=== PATIENT | female | born 1955 | race Asian ===

== ENCOUNTER 2023-04-03 13:17 | Outpatient (AMB) | payer SELFPAY ==
[2023-04-03 13:23] VITALS: BMI 39.5
--- NOTE | 2023-04-03 13:23 | MHC.OFFVIS ---
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 Intake Note: Michelle 67 yr old right hand dominant female who speaks P[place]ht[place], presents today with her daughter Ramila, for bilateral thumb CMC joint pain. States left hand is worse. States this started about 3 months ago and has worsen since. States she has weakness with gripping, twisting and heavy lifting. Denies numbness and tingling. Seen by her PCP who explained this could be O.A. She has tried braces OTC with little relief. Allergies No Known Allergies Allergy (Verified 04/03/23 13:23) HPI LEAD SYSTEMS ENGINEER-B/L hand/thumb arthritis CTS? 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 She complains of bilateral radial sided wrist pain and pain at the base of both thumbs left worse than right. She denies any known injury. Pain worse with activities. She denies any prior treatment and has been wearing OTC braces with no relief She denies any numbness, tingling or locking. She does say she wakes up from her hand pain at night She is a Diabetic. [facility] Social History (Updated 04/03/23 @ 13:25 by KERON Ortiz) Current occupational status: unemployed Current occupation: rt hand Review of Systems Const All systems reviewed & are unremarkable except as noted in HPI and below Physical Exam Vital Signs: BMI result Body Mass Index 39.5 Const General: cooperative, healthy appearing and no acute distress Orientation/consciousness: patient oriented x3 HEENT Head: Yes normocephalic and Yes atraumatic Eyes EOM: EOMs intact bilaterally Resp Effort & Inspection: normal respiratory effort and able to speak in complete sentences Cardio Jugular venous distension: no JVD Skin General skin exam: turgor normal Rashes: no rashes Neuro General: patient oriented x3 Extrem Other: Evaluation of Bilateral Upper Extremity: The patient is alert, oriented, and in no acute distress Neuro: Median, Ulnar, Radial nerves motor and sensory intact and sensation is normal to the tips of all digits Vascular: Cap refill brisk ROM: She can make a fist and extend all her digits No locking or catching Tender over the basal joint bilaterally Positive Shoulder sign bilaterally Most tender over the 1st dorsal compartment as it passes over the radial styloid bilaterally, left worse than right Positive Mine test bilaterally Skin: No lacerations or abrasions. General: No Ecchymosis. No Erythema or evidence of infection. Psych Appearance: grossly normal Affect: normal affect Attitude: cooperative Office Procedures Fracture Care Details: No fracture, injection [id number] Fracture Billing Code: Fracture Billing Code Results Reviewed Results Reviewed: 04/03/23 13:52 Lidocaine HCl 1 % [Xylocaine 1 %] 2 ml .ROUTE .STK-MED ONE dexAMETHasone sod phosphate [Decadron] 4 mg .ROUTE .STK-MED ONE Assessment & Plan Assessment & Plan (1) De Quervain's tenosynovitis, left: Code(s): M65.4 - Radial styloid tenosynovitis [de Quervain] (2) De Quervain's tenosynovitis, right: Code(s): M65.4 - Radial styloid tenosynovitis [de Quervain] (3) Arthritis of carpometacarpal (CMC) joint of left thumb: Code(s): M18.12 - Unilateral primary osteoarthritis of first carpometacarpal joint, left hand (4) Arthritis of carpometacarpal (CMC) joint of right thumb: Code(s): M18.11 - Unilateral primary osteoarthritis of first carpometacarpal joint, right hand Plan Assessment & Plan: 1. Left De Quervains Tenosynovitis Positive Mine test 2. Left basal joint osteoarthritis, based on PE Positive shoulder sign 3. Right De Quervains Tenosynovitis Positive Mine test 4. Right basal joint osteoarthritis, based on PE Positive shoulder sign I educated her about this condition I discussed operative and non-operative treatment options The patient would like to proceed with an injection today I discussed activity modification, she is to limit or avoid any heavy or repetitive pinching, gripping, lifting, or scissoring activities She was fitted for bilateral comfort cool brace to wear with daily activity Injection #1: The risks and benefits of a steroid injection including but not limited to risk of damage to blood vessels, nerves, tendons, infection, skin bleaching, failure to improve symptoms, increased pain, and possible need for further injections or other intervention were discussed with the patient and the patient wishes to proceed with the steroid injection. Once consent was obtained, I sterilely prepped the area over the 1st dorsal compartment of the left thumb. I then injected the 1st dorsal compartment with a combination of 1 mL of dexamethasone (4mg/ml), and 1% lidocaine. The patient tolerated the procedure well with no complications and good resolution of their symptoms prior to leaving clinic. She can follow up in 4-6 weeks if she continues to have pain. At that appointment I recommend X-rays,attn bilateral thumbs At that time we can see whether she might want an injection for the basal joint of the left thumb, or perhaps the 1st dorsal compartment on the right. Scribed for Alexandria Anders MD by Benjamín Quick, medical radiation dosimetrist, on 04/03/23 at 1:50 PM, EST. Coding Level of Care Code New Pt Level 3 (09836) Diagnoses De Quervain's tenosynovitis, left M65.4 De Quervain's tenosynovitis, right M65.4 Arthritis of carpometacarpal (CMC) joint of left thumb M18.12 Arthritis of carpometacarpal (CMC) joint of right thumb M18.11 CPT Codes Fracture Care - Fracture Billing Code: Fracture Billing Code ([id number])
== END 2023-04-03 14:10 | disposition home or self-care (01) ==
PROVIDERS: Visit Provider Orthopaedic Surgery
DX: M65.4 Radial styloid tenosynovitis [de Quervain] (principal); M18.0 Bilateral primary osteoarthritis of first carpometacarpal joints
CPT/HCPCS: 20550; 99204

== ENCOUNTER → 2023-04-03 13:17 | Outpatient (BNVA) | payer SELFPAY | PROVIDERS: Visit Provider Orthopaedic Surgery | DX: M65.4 Radial styloid tenosynovitis [de Quervain] (principal); M18.0 Bilateral primary osteoarthritis of first carpometacarpal joints | CPT/HCPCS: 20550; 99202; J1100 ==

== ENCOUNTER 2023-06-26 09:31 | Outpatient (AMB) | payer OTHER, SELFPAY ==
[2023-06-26 09:38] VITALS: BMI 39.5
--- NOTE | 2023-06-26 09:38 | MHC.OFFVIS ---
Intake Vital Signs 06/26/23 09:38 Height 4 ft 8 in Weight 176 lb BMI 39.5 Intake Visit Reasons: New Prob- B/L knee pain Intake Note: Michelle is a 67 year old female who presents today for a evaluation of her bilateral knee pains, right greater than left. She describes her pains as sharp and severe in nature. Her pains have gotten worse over the last few years in spite of continued non operative treatments. She has had both cortisone injections and Visco supplementation injections which gave her minimal relief. She has also done physical therapy which aggravated her pain. She has tried Tylenol and anti-inflammatory medicines which gave her minimal relief. At this point the patient has difficulty walking even short distances because of her right knee pain. Her right knee pain is interfering with her activities of daily living and her ability to sleep well through the night. Allergies No Known Allergies Allergy (Verified 06/26/23 09:38) Medication List - Last Reconciled 06/26/23 by Sher Salter MD dulaglutide (Trulicity) 1.5 mg subcut QWEEK dulaglutide (Trulicity) 3 mg subcut QWEEK glipizide 5 mg PO BID lisinopril 10 mg PO DAILY magnesium oxide 250 mg PO DAILY metformin 1,000 mg PO BID omeprazole 20 mg PO DAILY simvastatin 20 mg PO DAILY triamterene-hydrochlorothiazid 37.5-25 mg 1 tab PO DAILY PFSH Current occupational status: unemployed Current occupation: rt hand Physical Exam Vital Signs: BMI result Body Mass Index 39.5 Const Other: Well-nourished well-developed very friendly female awake alert and oriented x3 in no acute distress Extrem Other: Bilateral lower extremity examination shows good capillary refill, no skin lesions noted, normal sensation light touch Bilateral knee examination shows minimal effusions, palpable crepitus with range of motion, pain with range of motion, range of motion from -3 degrees to 115 degrees, no instability Office Procedures Joint Injection/Drain Joint Injection/Drain Primary Site: left knee Prep: site was prepped using aseptic technique Injected: 40 mg of, Kenalog and 1% plain lidocaine Procedure: The patient tolerated the procedure well Coding 46743 - Large joint Procedure code (CPT) selection complete Results Reviewed Results Reviewed: X-rays of the patient's bilateral knee show severe joint space narrowing with grade 4 [id number] arthritis in the medial compartments, subchondral sclerosis, osteophyte formation, no acute bony abnormalities Assessment & Plan Assessment & Plan (1) Arthritis of left knee: Code(s): M17.12 - Unilateral primary osteoarthritis, left knee Plan: Ms. Paiz presents with bilateral knee pains, right greater than left, due to end-stage degenerative joint disease. I had a lengthy discussion with the patient regarding the treatment options. At this point the patient has failed continued non operative treatments. The risks and benefits of right total knee replacement surgery were discussed at length with the patient. The patient wishes to proceed. She will contact my office to pick a surgery date. I will see her back 1 week prior to her surgery to answer any final questions that she might have. We will hold off on a cortisone injection into her right knee because of the upcoming surgery. The risks and benefits of a left knee cortisone injection were discussed at length with the patient. The patient wished to proceed. She tolerated the injection well. I also gave her a prescription for Tylenol with codeine to help with her pain in the meantime. The patient will follow-up as instructed. Feel free to call me at any time should questions regarding her orthopedic management arise. Thank you very much for asking me to see this very friendly patient. I spent 22 minutes in reviewing the patient's records and imaging studies, seeing the patient and documenting in the medical record. (2) Arthritis of right knee: Code(s): M17.11 - Unilateral primary osteoarthritis, right knee Orders: Orders XR knee LT 3V Today M17.12 - Unilateral primary osteoarthritis, left knee XR knee RT 3V Today M25.561 - Pain in right knee AMB Joint Injection/Aspiration Today M17.12 - Unilateral primary osteoarthritis, left knee Coding Level of Care Code New Pt Level 2 (77618) Diagnoses Arthritis of left knee M17.12 Arthritis of right knee M17.11 CPT Codes Coding - Large joint: 06043 - Large joint ([id number])
== END 2023-06-26 10:27 | disposition home or self-care (01) ==
PROVIDERS: Visit Provider Orthopaedic Surgery
DX: M17.0 Bilateral primary osteoarthritis of knee (principal)
CPT/HCPCS: 20610; 99214

== ENCOUNTER 2023-06-26 14:45 | Outpatient (REF) | payer OTHER, SELFPAY ==
--- NOTE | ~2023-06-26 | XR_ITS ---
EXAMINATION: XR KNEE, RIGHT XR KNEE, LEFT CLINICAL INFORMATION: Pain COMPARISON: None available. TECHNIQUE: 3 views of each knee FINDINGS: RIGHT: No acute visible fracture or dislocation. Moderate multi joint arthritic changes. Moderate to severe narrowing of the medial femorotibial compartments. Moderate narrowing of the medial and lateral patellofemoral compartment. Periarticular osteophytes along the tibial plateau, distal femoral condyle, and superior margin of the patella. Joint spaces and alignment are otherwise maintained. Trace knee joint effusion. Multiple ossific densities noted in the posterior compartment possibly representing phleboliths versus loose bodies. Soft tissues are unremarkable. LEFT: No acute visible fracture or dislocation. Moderate multi joint arthritic changes. Moderate to severe narrowing of the medial femorotibial compartments. Moderate narrowing of the medial and lateral patellofemoral compartment. Periarticular osteophytes along the tibial plateau, distal femoral condyle, and superior margin of the patella. Joint spaces and alignment are otherwise maintained. Trace knee joint effusion. Multiple ossific densities noted in the posterior and suprapatellar compartments possibly representing phleboliths versus loose bodies. Soft tissues are unremarkable. XR/XR knee RT 3V IMPRESSION: 1. No acute visible fracture or dislocation. 2. Bilateral moderate multi joint arthritic changes. 3. Bilateral trace knee joint effusion. 4. Multiple ossific densities noted in the posterior and suprapatellar compartments possibly representing phleboliths versus loose bodies.
--- NOTE | ~2023-06-26 | XR_ITS ---
EXAMINATION: XR KNEE, RIGHT XR KNEE, LEFT CLINICAL INFORMATION: Pain COMPARISON: None available. TECHNIQUE: 3 views of each knee FINDINGS: RIGHT: No acute visible fracture or dislocation. Moderate multi joint arthritic changes. Moderate to severe narrowing of the medial femorotibial compartments. Moderate narrowing of the medial and lateral patellofemoral compartment. Periarticular osteophytes along the tibial plateau, distal femoral condyle, and superior margin of the patella. Joint spaces and alignment are otherwise maintained. Trace knee joint effusion. Multiple ossific densities noted in the posterior compartment possibly representing phleboliths versus loose bodies. Soft tissues are unremarkable. LEFT: No acute visible fracture or dislocation. Moderate multi joint arthritic changes. Moderate to severe narrowing of the medial femorotibial compartments. Moderate narrowing of the medial and lateral patellofemoral compartment. Periarticular osteophytes along the tibial plateau, distal femoral condyle, and superior margin of the patella. Joint spaces and alignment are otherwise maintained. Trace knee joint effusion. Multiple ossific densities noted in the posterior and suprapatellar compartments possibly representing phleboliths versus loose bodies. Soft tissues are unremarkable. XR/XR knee LT 3V IMPRESSION: 1. No acute visible fracture or dislocation. 2. Bilateral moderate multi joint arthritic changes. 3. Bilateral trace knee joint effusion. 4. Multiple ossific densities noted in the posterior and suprapatellar compartments possibly representing phleboliths versus loose bodies.
== END 2023-06-26 14:46 | disposition home or self-care (01) ==
LOC: HO.HOSX 14:45
PROVIDERS: Visit Provider Orthopaedic Surgery
DX: M17.0 Bilateral primary osteoarthritis of knee (principal)
CPT/HCPCS: 20610; 73562; J3301

== ENCOUNTER 2023-07-10 09:46 | Outpatient (AMB) | payer OTHER, SELFPAY ==
--- NOTE | 2023-07-10 09:49 | A.OFFVIS_ITS ---
Intake Intake Visit Reasons: Request knee injections Intake Note: Michelle is a 67 year old female who presents today for a follow up of her bilateral knee pains. She has had injections given in both of her knees in the past. She has gotten fairly good relief from cortisone injections given into her right knee. Her last left knee injection gave her no relief. She describes her knee pains as sharp and severe in nature. She has taken Tylenol and anti- inflammatory medicines which gave her minimal relief. At this point her left knee pain is interfering with her activities of daily living and her ability to sleep well through the night. Allergies No Known Allergies Allergy (Verified 07/10/23 09:52) Medication List - Last Reconciled 07/10/23 by Sher Salter MD acetaminophen-codeine 300-30 mg 1 tab PO Q8H PRN dulaglutide (Trulicity) 1.5 mg subcut QWEEK dulaglutide (Trulicity) 3 mg subcut QWEEK glipizide 5 mg PO BID lisinopril 10 mg PO DAILY magnesium oxide 250 mg PO DAILY metformin 1,000 mg PO BID omeprazole 20 mg PO DAILY simvastatin 20 mg PO DAILY triamterene-hydrochlorothiazid 37.5-25 mg 1 tab PO DAILY PFSH Social History Current occupational status: unemployed Current occupation: rt hand Physical Exam Const Other: Well-nourished well-developed very friendly female awake alert and oriented x3 in no acute distress Extrem Other: Bilateral lower extremity examination shows good capillary refill, no skin lesions noted, normal sensation light touch Bilateral knee examination shows minimal effusions, palpable crepitus with range of motion, pain with range of motion, range of motion from -3 degrees to 115 degrees, no instability Office Procedures Joint Injection/Drain Joint Injection/Drain Primary Site: right knee Prep: site was prepped using aseptic technique Injected: 40 mg of, DepoMedrol and 1% plain lidocaine Procedure: The patient tolerated the procedure well Coding 45449 - Large joint Procedure code (CPT) selection complete Results Reviewed Results Reviewed: X-rays of the patient's bilateral knee show severe joint space narrowing, subchondral sclerosis, osteophyte formation, no acute bony abnormalities the Assessment & Plan Assessment & Plan (1) Arthritis of right knee: Code(s): M17.11 - Unilateral primary osteoarthritis, right knee Plan Ms. Paiz presents with bilateral knee pains, left greater than right, due to end-stage degenerative joint disease. I had a lengthy discussion with the patient regarding the treatment options. The risks and benefits of a right knee cortisone injection were discussed at length with the patient. The patient wished to proceed. She tolerated the injection well. We also discussed the treatment options for her left knee pain. At this point she has failed continued non operative treatments. The risks and benefits of left total knee replacement surgery were discussed at length with the patient. The patient is interested in proceeding with surgery once her hemoglobin A1c is below 8.0. She will contact my office to pick a surgery date. She will follow-up as instructed. Feel free to call me at any time should questions regarding her orthopedic management arise. I spent 22 minutes in reviewing the patient's records and imaging studies, seeing the patient and documenting in the medical record. Orders: Orders AMB Joint Injection/Aspiration Today M17.11 - Unilateral primary osteoarthritis, right knee Coding Level of Care Code Est Pt Level 2 (29662) Diagnoses Arthritis of right knee M17.11 CPT Codes Coding - 30458 Large joint: 62328 - Large joint ([id number])
== END 2023-07-10 10:13 | disposition home or self-care (01) ==
PROVIDERS: PCP Family Medicine; Visit Provider Orthopaedic Surgery
DX: M17.11 Unilateral primary osteoarthritis, right knee (principal)
CPT/HCPCS: 20610

== ENCOUNTER → 2023-07-10 09:46 | Outpatient (BNVA) | payer OTHER, SELFPAY | PROVIDERS: PCP Family Medicine; Visit Provider Orthopaedic Surgery | DX: M17.11 Unilateral primary osteoarthritis, right knee (principal) | CPT/HCPCS: 20610; J1040 ==

== ENCOUNTER → 2023-10-22 14:18 | Outpatient (BNVA) | payer OTHER, SELFPAY | PROVIDERS: PCP Family Medicine; Visit Provider Orthopaedic Surgery ==

== ENCOUNTER → 2023-10-22 14:18 | Outpatient (BNVA) | payer OTHER, SELFPAY | PROVIDERS: PCP Family Medicine; Visit Provider Orthopaedic Surgery ==

== ENCOUNTER 2024-09-30 12:59 | Outpatient (AMB) | payer MEDICARE, MEDICAID, SELFPAY ==
[2024-09-30 13:27] VITALS: BMI 39.5
--- NOTE | 2024-09-30 13:27 | A.OFFVIS_ITS ---
Vital Signs 09/30/24 13:27 Height 4 ft 8 in Weight 176 lb BMI 39.5 Intake Visit Reasons: OV- bilat hand pain Intake Note: Michelle 69 yr old [place] speaking female presents today with her daughter Ramila for bilateral hands s/p left hand dequervain injection from 04/03/24. State injection did not help at help. Currently she is having pain in both hands and is hoping to have both hands injected or discuss other treatment options. 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 She was last seen on 04/03/23 and received a left 1st dorsal compartment injection, and bilateral comfort cool braces. She says the injection was not helpful. She complains of bilateral radial sided wrist pain and pain at the base of both thumbs, R>L. Pain worse with pinching & gripping activities. She says she cannot pick anything up. her daughter says it even hurts her to wipe her nose. She denies any numbness, tingling or locking. She does say she wakes up from her hand pain at night [facility] Medical History (Updated 09/30/24 @ 13:51 by Benjamín Quick) Diabetes GERD (gastroesophageal reflux disease) Elevated cholesterol HTN (hypertension) Arthritis Social History Current occupational status: unemployed Current occupation: rt hand Physical Exam Vital Signs: BMI result Body Mass Index 39.5 Extrem Other: Evaluation of Right Upper Extremity: The patient is alert, oriented, and in no acute distress Neuro: Median, Ulnar, Radial nerves motor and sensory intact and sensation is normal to the tips of all digits Vascular: Cap refill brisk ROM: She can make a fist and extend all her digits No locking or catching Most tender over the basal joint Pos Shoulder sign Pos CMC grind Not particularly tender over the 1st dorsal compartment Mild tenderness over the a1 maranda Office Procedures AMB Fracture Care Details: No fracture, injection Fracture Billing Code: Fracture Billing Code Assessment & Plan Assessment & Plan (1) Arthritis of carpometacarpal (CMC) joint of right thumb: Code(s): M18.11 - Unilateral primary osteoarthritis of first carpometacarpal joint, right hand Category: Medical (2) De Quervain's tenosynovitis, left: Code(s): M65.4 - Radial styloid tenosynovitis [de Quervain] Category: Medical (3) De Quervain's tenosynovitis, right: Code(s): M65.4 - Radial styloid tenosynovitis [de Quervain] Category: Medical (4) Arthritis of carpometacarpal (CMC) joint of left thumb: Code(s): M18.12 - Unilateral primary osteoarthritis of first carpometacarpal joint, left hand Category: Medical (5) Diabetes: Code(s): E11.9 - Type 2 diabetes mellitus without complications Category: Medical Plan Assessment & Plan: 1. Right basal joint osteoarthritis, based on PE Positive shoulder sign This is her chief complaint today 2. Right De Quervains Tenosynovitis 3. Left basal joint osteoarthritis, based on PE Positive shoulder sign 4. Left De Quervains Tenosynovitis, S/P injection Date of injection: 04/03/23 Patient reports no relief from her injection I educated her about these conditions I discussed operative and non-operative treatment options The patient would like to proceed with an injection today I discussed activity modification, she is to limit or avoid any heavy or repetitive pinching, gripping, lifting, or scissoring activities She will continue to wear her comfort cool braces with daily activities Injection #1: The risks and benefits of a steroid injection including but not limited to risk of damage to blood vessels, nerve, tendon, infection, skin bleaching, persistent or worsening pain, and failure to improve symptoms were discussed with the patient and they wish to proceed with the steroid injection. Once consent was obtained the skin over the dorsum of the Right basal joint was sterilely prepped. The joint was then injected with a combination of 1 mL of (40 mg/ml} Depo-Medrol and 1% plain Lidocaine. The patient appears to have tolerated the procedure well and with no complications. She had good early relief before leaving clinic today. She knows that they may not have another steroid injection into this joint for least 4 months. She will follow up in 4-5 weeks, when Ramadan is over, to discuss a possible right hand injection Bilateral hand X-rays, attn base of thumbs, at next appointment Please note that greater than 30 minutes was spent with this patient going over the history, evaluating the patient and radiographs, formulating possible treatment options, discussing them with the patient, and documenting the visit. Scribed for Alexandria Anders MD by Benjamín Quick, medical management specialist, on 09/30/24 at 1:50 PM, EST. Coding Level of Care Code Est Pt Level 4 (20699) Diagnoses Arthritis of carpometacarpal (CMC) joint of right thumb M18.11 De Quervain's tenosynovitis, left M65.4 De Quervain's tenosynovitis, right M65.4 Arthritis of carpometacarpal (CMC) joint of left thumb M18.12 Diabetes E11.9 CPT Codes Fracture Care - Fracture Billing Code: Fracture Billing Code ([id number])
--- OUTSIDE RECORDS SUMMARY | 2024-09-30 15:55 | XMS_ITS | Clinical Summary ---
Author Organization [facility] Address [address] [place] [address] Care Team Providers Care Coupon Clerk Name Role Phone Daniel Khalil MD Primary Care Prov ider Allergies No known active allergies Medications Medication Sig Dispensed Refills Start Date End Date Status albuterol (PROVENTIL) (2.5 MG/3ML) 0.083% nebulizer solution USE 3 ML VIA NEBULIZER EVERY DAY NEEDED 0 01/12/2021 Active clobetasol (TEMOVATE) 0.05 % ointment APPLY THIN LAYER TOPICALLY TO THE AFFECTED AREA TWICE DAILY 0 03/03/2021 Active diclofenac (VOLTAREN) 50 MG EC tablet TAKE 1 TABLET BY MOUTH TWICE DAILY WITH MEALS FOR 14 DAYS 0 02/17/2021 Active Trulicity 0.75 MG/0.5ML subcutaneous pen-injector ADMINISTER 0.75 MG UNDER THE SKIN EVERY WEEK 0 02/21/2021 Active ferrous sulfate 325 (65 FE) MG tablet Take 325 mg by mouth. 0 Active glipiZIDE (GLUCOTROL) tablet 5 mg 1/2 tablet Orally Twice a day 0 Active MAGnesium-Oxide 400 (241.3 Mg) MG TABS tablet Take 400 mg by mouth daily. 0 12/30/2020 Active metFORMIN (GLUCOPHAGE) tablet 1000 mg Take 1,000 mg by mouth. 0 Active simvastatin (ZOCOR) tablet 20 mg Take 20 mg by mouth daily. 0 02/07/2021 Active topiramate (TOPAMAX) 25 MG capsule Take 25 mg by mouth. 0 Active lisinopril (PRINIVIL,ZESTRIL) tablet 5 mg Take 5 mg by mouth daily. 0 03/08/2021 Active omeprazole (PriLOSEC) 20 MG capsule 0 03/08/2021 Active triamterene-hydrochlo rothiazide (MAXZIDE-25) 37.5-25 MG per tablet Take 1 tablet by mouth daily. 0 03/08/2021 Active cefpodoxime (VANTIN) 200 MG tablet 0 07/22/2021 Active gabapentin (NEURONTIN) 300 MG capsule TAKE 1 CAPSULE BY MOUTH EVERY DAY IN THE EVENING 0 08/14/2021 Active sulfamethoxazole-trim ethoprim (BACTRIM DS) 800-160 MG per tablet Take 1 tablet by mouth every 12 (twelve) hours. for 3 days 0 12/18/2021 Active Trulicity 1.5 MG/0.5ML subcutaneous pen-injector ADMINISTER 1.5 MG UNDER THE SKIN EVERY WEEK 0 01/19/2022 Active Active Problems Problem Noted Date Diagnosed Date Degenerative arthritis of knee, bilateral 2020 Social History Tobacco Use Types Packs/Day Years Used Date Smoking Tobacco: Never Assessed Sex and Gender Information Value Date Recorded Sex Assigned at Not on file Gender Identity Not on file Sexual Orientation Not on file Job Start Date Occupation Industry Not on file Not on file Not on file Last Filed Vital Signs Vital Sign Reading Time Taken Comments Blood Pressure - - Pulse - - Temperature - - Respiratory Rate - - Oxygen Saturation - - Inhaled Oxygen Concentration - - Weight 77.1 kg (170 lb) 03/28/2021 10:00 AM EDT Height 160 cm (5' 3 ) 03/28/2021 10:00 AM EDT Body Mass Index 30.11 03/28/2021 10:00 AM EDT Plan of Treatment Health Maintenance Due Date Last Done Comments Hepatitis C Screening 1955 COVID-19 Vaccine (#1) 03/06/1958 Depression Screening 1969 BMI Counseling 1975 Preventative Health Evaluation 1975 DTap / Tdap / Td (1 - Tdap) 1976 Colon Cancer Screening (Colonoscopy) 2002 Breast Cancer Screening (Mammogram) 2007 Shingrix-Zoster Vaccine (1 of 2) 2007 Fall Risk Assessment 2022 Osteoporosis Screening (DEXA Scan) 2022 Pneumococcal Vaccine (1 of 1 - PCV) 2022 Influenza Vaccine (#1) 2024 RSV Adult > 60+ Yrs or Pregn ant (1 - 1-dose 75+ series) 2032 Hepatitis B Vaccines Aged Out No long er eligible based on patient's age to complete this topic RSV Ped < 20 months Aged Out No longe r eligible based on patient's age to complete this topic Care Teams Coupon Clerk Relationship Specialty Start Date End Date Daniel Khalil MD [address] [place] [phone] PCP - General Family Medicine 01/26/21
--- OUTSIDE RECORDS SUMMARY | 2024-09-30 15:55 | XMS_ITS | Clinical Summary ---
Author Organization [facility] Address [address] [place] [address] Care Team Providers Care Plant Engineering Supervisor Name Role Phone Unavailable Primary Care Provider Unavailabl e Social History Tobacco Use Types Packs/Day Years Used Date Smoking Tobacco: Never Assessed Sex and Gender Information Value Date Recorded Sex Assigned at Not on file Gender Identity Not on file Sexual Orientation Not on file Plan of Treatment Health Maintenance Due Date Last Done Comments Hepatitis C Virus Screening 1957 DTaP/Tdap/Td Vaccines (1 - Tdap) 1976 Mammogram 1997 Colonoscopy 2002 Pneumococcal Vaccines 50+ (1 of 1 - PCV) 2007 Zoster (Shingles) Vaccine (1 of 2) 2007 DXA Bone Density (Females,Ag es 65 and older) 2022 Influenza Vaccine 03/05/2024 COVID-19 Vaccine ( - 2023-2 5 season) 2024 RSV Vaccine 60 years and old er and Patients (1 - 1-dose 75+ series) 2032 Hepatitis B Vaccines Aged Out No long er eligible based on patient's age to complete this topic
--- OUTSIDE RECORDS SUMMARY | 2024-09-30 15:55 | XMS_ITS | Encounter Summary ---
Author Organization [facility] Address [address] [place] [address] Care Team Providers Care Banking Management Consulting Manager Name Role Phone Unavailable Primary Care Provider Unavailabl e Encounter Details Date Type Department Care Team (Late st Contact Info) Description [address] [place] [address] [place] [address] Harpreet Zuniga MD [address] [place], [place] [phone] Encounter for laboratory testing for COVID-19 virus Social History Tobacco Use Types Packs/Day Years Used Date Smoking Tobacco: Never Assessed Sex and Gender Information Value Date Recorded Sex Assigned at Not on file Gender Identity Not on file Sexual Orientation Not on file documented as of this encounter Plan of Treatment Not on file documented as of this encounter Procedures Procedure Name Priority Date/Time Associated Diagnosis Comments COVID-19 (SARS-COV-2) - [facility] Routine 2020 3:17 PM EST Encounter for laboratory testing for COVID-19 virus [ICD-10-CM] documented in this encounter Results * COVID-19 (SARS-COV-2) ([facility]) (2020 3:17 PM EST) COVID-19 RT-PCR NOT-DETEC MARYJANE Not-Detec maryjane 09/07/2020 3:25 PM EST [facility] [place] Comment:Interpretation: The viral RNA was not detected, making the COVID-19 diagnosis less likely. Clinical correlation is highly recommended.Final report signed by Jose Davis, Ph.D., Laboratory DirectorTests performed at [facility] Nasopharyngeal swab / Unknown 2020 3:17 PM EST 2020 3:17 PM EST Narrative SRUTHI HERR - 09/07/2020 3:25 PM EST Performed by [employer] [employer] [address] [place] [address], CLIA# [id number] and [place] License# [id number] Harpreet Zuniga MD MICROBIOLOGY - GENER AL ORDERABLES Performing Organization Address City/State/[place] Co de Phone Number SRUTHI HERR documented in this encounter Visit Diagnoses Diagnosis Encounter for laboratory testing for COVID-19 virus documented in this encounter
== END 2024-09-30 14:18 | disposition home or self-care (01) ==
PROVIDERS: PCP Family Medicine; Visit Provider Orthopaedic Surgery
DX: M18.0 Bilateral primary osteoarthritis of first carpometacarpal joints (principal); M65.4 Radial styloid tenosynovitis [de Quervain]; E11.9 Type 2 diabetes mellitus without complications
CPT/HCPCS: 20600; 99214

== ENCOUNTER → 2024-09-30 12:59 | Outpatient (BNVA) | payer MEDICARE, SELFPAY | PROVIDERS: PCP Family Medicine; Visit Provider Orthopaedic Surgery | DX: M18.11 Unilateral primary osteoarthritis of first carpometacarpal joint, right hand (principal); M18.12 Unilateral primary osteoarthritis of first carpometacarpal joint, left hand; M65.4 Radial styloid tenosynovitis [de Quervain]; E11.9 Type 2 diabetes mellitus without complications | CPT/HCPCS: 20600; 99212; J1010; J2003 ==

== ENCOUNTER 2024-11-11 12:28 | Outpatient (REF) | payer MEDICARE, MEDICAID, SELFPAY ==
--- NOTE | ~2024-11-11 | XR_ITS ---
EXAMINATION: XR HAND, LEFT CLINICAL INFORMATION: M79.642 - Pain in left hand COMPARISON: None available. TECHNIQUE: PA, lateral, and oblique views of the left hand. FINDINGS: Sclerosis and the articular surface of the first carpometacarpal joint. Asymmetric joint space narrowing, radiocarpal joint. Decreased mineralization. No acute cortical disruption or malalignment. No lytic or blastic lesions. XR/XR hand LT min 3V IMPRESSION: Mild osteoarthrosis. Osteopenia versus osteoporosis. No acute fracture or dislocation. Electronically signed by: Kolby Canas MD 11/11/2024 03:00 PM EDT
--- NOTE | ~2024-11-11 | XR_ITS ---
EXAMINATION: XR HAND, RIGHT CLINICAL INFORMATION: M79.641 - Pain in right hand COMPARISON: None available. TECHNIQUE: PA, lateral, and oblique views of the right hand. FINDINGS: No acute cortical disruption or malalignment. Degenerative changes in the first carpometacarpal joint. Mild joint space narrowing in the radiocarpal joint. No lytic or blastic lesions. No metallic or radiopaque foreign body. Decreased mineralization. No subcutaneous emphysema. XR/XR hand RT min 3V IMPRESSION: No acute fracture or dislocation. Mild osteoarthrosis.. Electronically signed by: Kolby Canas MD 11/11/2024 02:59 PM EDT
== END 2024-11-11 12:29 | disposition home or self-care (01) ==
LOC: HO.HOSX 12:28
PROVIDERS: PCP Family Medicine; Visit Provider Orthopaedic Surgery
DX: M18.11 Unilateral primary osteoarthritis of first carpometacarpal joint, right hand (principal); M79.642 Pain in left hand; M79.641 Pain in right hand; M18.12 Unilateral primary osteoarthritis of first carpometacarpal joint, left hand; M65.4 Radial styloid tenosynovitis [de Quervain]
CPT/HCPCS: 20600; 73130; 99212; J1010; J2003

== ENCOUNTER 2024-11-11 12:28 | Outpatient (AMB) | payer MEDICARE, MEDICAID, SELFPAY ==
--- NOTE | 2024-11-11 12:39 | MHC.OFFVIS ---
Intake Visit Reasons: OV- bilat hand pain - last rt basal inj 09/30/24 Intake Note: Michelle 69 yr old Pushto speaking female presents today with her daughter Ramila for bilateral hands s/p left hand dequervain injection from 09/30/24. States injection helped with her symptoms however states she is now having same pain in her left hand and would like to discuss injection. Allergies No Known Allergies Allergy (Verified 11/11/24 12:56) HPI HPI OV- bilat hand pain - last rt basal inj 09/30/24: Details: Michelle is a 69 year old right hand dominant Diabetic Pushtu/Arabic speaker from 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 She has bilateral basal joint arthritis. She was last seen on 09/30/24 for a right 1st basal joint injection, and previously had received a left 1st dorsal compartment injection, and bilateral comfort cool braces, on 04/03/23. She says the right basal joint injection was helpful, and she would now like to try a left basal joint injection She denies any numbness, tingling or locking. She does say she wakes up from her hand pain at night [facility] Medical History (Updated 09/30/24 @ 13:51 by Benjamín Quick) Diabetes GERD (gastroesophageal reflux disease) Elevated cholesterol HTN (hypertension) Arthritis Social History (Reviewed 11/11/24 @ 12:57 by Nita Fitzgerald [facility]) Current occupational status: unemployed Current occupation: rt hand Physical Exam Extrem Other: Evaluation of Left Upper Extremity: The patient is alert, oriented, and in no acute distress Neuro: Median, Ulnar, Radial nerves motor and sensory intact and sensation is normal to the tips of all digits Vascular: Cap refill brisk ROM: She can make a fist and extend all her digits No locking or catching Most tender over the basal joint Pos Shoulder sign Pos CMC grind Radiographs: 3 views of the bilateral hands, with attention to the thumbs, were taken and viewed by me today in clinic. Concerning the right hand, they show: basal joint arthritis with joint space narrowing, subchondral sclerosis, and osteophyte formation Concerning the left hand, they show: basal joint arthritis with joint space narrowing, subchondral sclerosis, and osteophyte formation Office Procedures AMB Fracture Care Details: No fracture, injection Fracture Billing Code: Fracture Billing Code Assessment & Plan Assessment & Plan (1) Arthritis of carpometacarpal (CMC) joint of right thumb: Code(s): M18.11 - Unilateral primary osteoarthritis of first carpometacarpal joint, right hand Category: Medical (2) De Quervain's tenosynovitis, left: Code(s): M65.4 - Radial styloid tenosynovitis [de Quervain] Category: Medical (3) De Quervain's tenosynovitis, right: Code(s): M65.4 - Radial styloid tenosynovitis [de Quervain] Category: Medical (4) Arthritis of carpometacarpal (CMC) joint of left thumb: Code(s): M18.12 - Unilateral primary osteoarthritis of first carpometacarpal joint, left hand Category: Medical (5) Diabetes: Code(s): E11.9 - Type 2 diabetes mellitus without complications Category: Medical Plan Assessment & Plan: 1. Left basal joint osteoarthritis S/P injection on 11/11/24 Positive shoulder sign This is her chief complaint today 2. Right basal joint osteoarthritis S/P injection on 09/30/24 Positive shoulder sign I educated her about these conditions I discussed operative and non-operative treatment options The patient would like to proceed with an injection today I discussed activity modification, she is to limit or avoid any heavy or repetitive pinching, gripping, lifting, or scissoring activities She will continue to wear her comfort cool braces with daily activities Injection #1: The risks and benefits of a steroid injection including but not limited to risk of damage to blood vessels, nerve, tendon, infection, skin bleaching, persistent or worsening pain, and failure to improve symptoms were discussed with the patient and they wish to proceed with the steroid injection. Once consent was obtained the skin over the dorsum of the Left basal joint was sterilely prepped. The joint was then injected with a combination of 1 mL of (40 mg/ml} Depo-Medrol and 1% plain Lidocaine. The patient appears to have tolerated the procedure well and with no complications. She had good early relief before leaving clinic today. She knows that they may not have another steroid injection into this joint for least 4 months. 3. Right De Quervains Tenosynovitis Not currently symptomatic 4. Left De Quervains Tenosynovitis, S/P injection Date of injection: 04/03/23 Patient reports no relief from her injection No tenderness over the 1st dorsal compartment today. Scribed for Alexandria Anders MD by Benjamín Quick, family practice medical doctor, on 11/11/24 at 1:10 PM, EST. Orders: Orders XR hand RT min 3V Today M79.641 - Pain in right hand XR hand LT min 3V Today M79.642 - Pain in left hand Coding Level of Care Code Est Pt Level 3 (87320) Diagnoses Arthritis of carpometacarpal (CMC) joint of right thumb M18.11 De Quervain's tenosynovitis, left M65.4 De Quervain's tenosynovitis, right M65.4 Arthritis of carpometacarpal (CMC) joint of left thumb M18.12 Diabetes E11.9 CPT Codes Fracture Care - Fracture Billing Code: Fracture Billing Code ([id number])
--- OUTSIDE RECORDS SUMMARY | 2024-11-11 14:28 | XMS_ITS ---
[facility] Organization Unknown Encounters Encounter Type Encounter Reason Primary Diagnosis Location Date Ambulatory [facility] 03/06/2023 Ambulatory [facility] 03/06/2023 Ambulatory [facility] 02/06/2023
--- OUTSIDE RECORDS SUMMARY | 2024-11-11 14:28 | XMS_ITS | Clinical Summary ---
Author Organization [facility] Address [address] [place] [address] Care Team Providers Care Regulatory Affairs Consultant Name Role Phone Daniel Khalil MD Primary [...] age to complete this topic Care Teams Regulatory Affairs Consultant Relationship Specialty Start Date End Date Daniel Khalil MD [address] [place] [phone] PCP - General Family Medicine 01/26/21
--- OUTSIDE RECORDS SUMMARY | 2024-11-11 14:28 | XMS_ITS | Encounter Summary ---
Author Organization [facility] Address [address] [place] [address] Care Team Providers Care Briar Shop Supervisor Name Role Phone Unavailable Primary Care Provider Unavailabl e Encounter Details Date Type Department Care Team (Late st Contact Info) Description [address] [place] [address] [place] [address] Harpreet Zuniga MD [address] [place], [place] [phone] Encounter for laboratory testing for COVID-19 virus [...] Date/Time Associated Diagnosis Comments COVID-19 (SARS-COV-2) - [facility] Routine 2020 3:17 PM EST Encounter for laboratory testing for COVID-19 virus [ICD-10-CM] documented in this encounter Results * COVID-19 (SARS-COV-2) ([facility]) (2020 3:17 PM EST) COVID-19 RT-PCR NOT-DETEC MARYJANE Not-Detec maryjane 09/07/2020 3:25 PM EST [facility] [place] Comment:Interpretation: The viral RNA was not detected, making the COVID-19 diagnosis less likely. Clinical correlation is highly recommended.Final report signed by Jose Davis, Ph.D., Laboratory DirectorTests performed at [facility] Nasopharyngeal swab / Unknown 2020 3:17 PM EST 2020 3:17 PM EST Narrative SRUTHI HERR - 09/07/2020 3:25 PM EST Performed by [employer] [employer] [address] [place] [address], CLIA# [id number] and [place] License# [id number] Harpreet Zuniga MD MICROBIOLOGY - GENER AL ORDERABLES Performing Organization Address City/State/[place] Co de Phone Number SRUTHI HERR documented in this encounter Visit Diagnoses Diagnosis Encounter for laboratory testing for COVID-19 virus documented in this encounter
--- OUTSIDE RECORDS SUMMARY | 2024-11-11 14:28 | XMS_ITS | Clinical Summary ---
Author Organization [facility] Address [address] [place] [address] Care Team Providers Care Laminating Machine Operator Name Role Phone Unavailable Primary Care Provider [...]
== END 2024-11-11 13:27 | disposition home or self-care (01) ==
LOC: HO.HOS 12:29
PROVIDERS: PCP Family Medicine; Visit Provider Orthopaedic Surgery
DX: M18.0 Bilateral primary osteoarthritis of first carpometacarpal joints (principal); M65.4 Radial styloid tenosynovitis [de Quervain]; E11.9 Type 2 diabetes mellitus without complications
CPT/HCPCS: 20600; 99213

== ENCOUNTER → 2024-11-11 12:48 | Outpatient (BNV) | payer MEDICARE, MEDICAID, SELFPAY | PROVIDERS: PCP Family Medicine; Visit Provider Radiology Diagnostic Radiology | DX: M79.642 Pain in left hand (principal); M79.641 Pain in right hand | CPT/HCPCS: 73130 ==

== ENCOUNTER 2025-01-04 13:41 | Outpatient (AMB) | payer MEDICARE, MEDICAID, SELFPAY ==
--- NOTE | 2025-01-04 13:42 | MHC.OFFVIS ---
Vital Signs 01/04/25 13:48 Height 4 ft 8 in Weight 176 lb BMI 39.5 Intake Visit Reasons: Right knee pain Intake Note: Michelle is a 69 year old female who presents with complaints of progressively worsening bilateral knee pains, right greater than left. She describes her right knee pain as sharp in nature. She wishes to hold off on right total knee replacement surgery if at all possible. She has tried physical therapy exercises which aggravated her pain. She has also tried Tylenol, anti-inflammatory medicines and topical creams which gave her minimal relief. She has had cortisone injections in the past which gave her fairly good relief. Allergies clindamycin Allergy (Unknown, Verified 01/04/25 13:48) Unknown Medication List - Last Reconciled 01/04/25 by Sher Salter MD acetaminophen-codeine 300-30 mg 1 tab PO Q8H PRN dulaglutide (Trulicity) 1.5 mg subcut QWEEK glipizide 5 mg PO BID lisinopril 10 mg PO DAILY magnesium oxide 250 mg PO DAILY metformin 1,000 mg PO BID omeprazole 20 mg PO DAILY simvastatin 20 mg PO DAILY tramadol 50 mg PO Q12H PRN 1 month triamterene-hydrochlorothiazid 37.5-25 mg 1 tab PO DAILY walker Folding front wheeled walker [facility] Medical History (Updated 09/30/24 @ 13:51 by Benjamín Quick) Diabetes GERD (gastroesophageal reflux disease) Elevated cholesterol HTN (hypertension) Arthritis Social History (Reviewed 11/11/24 @ 12:57 by Nita Fitzgerald [facility]) Current occupational status: unemployed Current occupation: rt hand Physical Exam Vital Signs: BMI result Body Mass Index 39.5 Const Other: Well-nourished well-developed very friendly female awake alert and oriented x3 in no acute distress Extrem Other: Bilateral lower extremity examination shows good capillary refill, no skin lesions noted, normal sensation light touch Right knee examination shows a minimal effusion, palpable crepitus with range of motion, pain with range of motion, no instability Office Procedures AMB Joint Injection/Aspiration Joint Injection/Aspiration Primary Site: right knee Prep: site was prepped using aseptic technique Injected: 40 mg of, DepoMedrol and 1% plain lidocaine Procedure: The patient tolerated the procedure well Coding 10363 - Large joint Procedure code (CPT) selection complete Results Reviewed Results Reviewed: X-rays of the patient's right knee taken previously show joint space narrowing, subchondral sclerosis, no acute Assessment & Plan Assessment & Plan (1) Arthritis of right knee: Code(s): M17.11 - Unilateral primary osteoarthritis, right knee Category: Medical (2) Right knee pain: Code(s): M25.561 - Pain in right knee Category: Medical Plan Ms. Paiz presents with right knee pain due to degenerative joint disease. The risks and benefits of a right knee cortisone injection were discussed at length with the patient. The patient wished to proceed. She tolerated the injection well. I will see her back in 3-4 weeks' time for repeat clinical examination as well as possible left knee cortisone injection. Feel free to call me at any time should questions regarding her orthopedic management arise. I spent 21 minutes in reviewing the patient's records and imaging studies, seeing the patient and documenting in the medical record. Orders: Orders AMB Joint Injection/Aspiration Today M17.11 - Unilateral primary osteoarthritis, right knee Coding Level of Care Code Est Pt Level 3 (29072) Complex EM visit Add On G2211 Diagnoses Arthritis of right knee M17.11 Right knee pain M25.561 CPT Codes Coding - 76980 Large joint: 09923 - Large joint ([id number])
[2025-01-04 13:48] VITALS: BMI 39.5
== END 2025-01-04 14:05 | disposition home or self-care (01) ==
LOC: HO.HOS 13:42
PROVIDERS: PCP Family Medicine; Visit Provider Orthopaedic Surgery
DX: M17.11 Unilateral primary osteoarthritis, right knee (principal); M25.561 Pain in right knee
CPT/HCPCS: 20610; 99213

== ENCOUNTER → 2025-01-04 13:41 | Outpatient (BNVA) | payer MEDICARE, MEDICAID, SELFPAY | PROVIDERS: PCP Family Medicine; Visit Provider Orthopaedic Surgery | DX: M17.11 Unilateral primary osteoarthritis, right knee (principal) | CPT/HCPCS: 20610; 99212; J1010; J2003 ==

== ENCOUNTER 2025-03-15 13:01 | Outpatient (AMB) | payer MEDICARE, MEDICAID, SELFPAY ==
--- NOTE | 2025-03-15 13:03 | MHC.OFFVIS ---
Vital Signs 03/15/25 13:07 Height 4 ft 8 in Weight 161 lb BMI 36.1 Intake Visit Reasons: Left knee pain Intake Note: Michelle is a 69 year old female who presents with complaints of progressively worsening left knee pain. The patient describes her pain as sharp in nature. At her last visit she was given a cortisone injection into her right knee. She states that she got very good relief from that injection. She has tried Tylenol and anti-inflammatory medicines which gave her minimal relief. She would like to hold off on surgery if at all possible. Cut Off Saw Operator Pipe Blanks Required: Yes Cut Off Saw Operator Pipe Blanks Services: Cut Off Saw Operator Pipe Blanks Offered & Declined Cut Off Saw Operator Pipe Blanks Name: Saher. Leavitt- Granddaughter Allergies clindamycin Allergy (Unknown, Verified 03/15/25 13:07) Unknown Medication List - Last Reconciled 03/15/25 by Sher Salter MD acetaminophen-codeine 300-30 mg 1 tab PO Q8H PRN dulaglutide (Trulicity) 1.5 mg subcut QWEEK glipizide 5 mg PO BID lisinopril 10 mg PO DAILY magnesium oxide 250 mg PO DAILY metformin 1,000 mg PO BID omeprazole 20 mg PO DAILY simvastatin 20 mg PO DAILY tramadol 50 mg PO Q12H PRN 1 month triamterene-hydrochlorothiazid 37.5-25 mg 1 tab PO DAILY walker Folding front wheeled walker [facility] Medical History (Updated 09/30/24 @ 13:51 by Benjamín Quick) Diabetes GERD (gastroesophageal reflux disease) Elevated cholesterol HTN (hypertension) Arthritis Social History Current occupational status: unemployed Current occupation: rt hand Physical Exam Vital Signs: BMI result Body Mass Index 36.1 Const Other: Well-nourished well-developed very friendly female awake alert and oriented x3 in no acute distress Extrem Other: Bilateral lower extremity examination shows good capillary refill, no skin lesions noted, normal sensation light touch Left knee examination shows a minimal effusion, palpable crepitus with range of motion, pain with range motion, no instability Office Procedures AMB Joint Injection/Aspiration Joint Injection/Aspiration Primary Site: left knee Prep: site was prepped using aseptic technique Injected: 40 mg of, DepoMedrol and 1% plain lidocaine Procedure: The patient tolerated the procedure well Coding 60018 - Large joint Procedure code (CPT) selection complete Results Reviewed Results Reviewed: X-rays of the patient's left knee taken previously show joint space narrowing, subchondral sclerosis, no acute bony abnormalities Assessment & Plan Assessment & Plan (1) Arthritis of left knee: Code(s): M17.12 - Unilateral primary osteoarthritis, left knee Category: Medical (2) Left knee pain: Code(s): M25.562 - Pain in left knee Plan Ms. Paiz presents with left knee pain due to degenerative joint disease. The risks and benefits of a left knee cortisone injection were discussed at length with the patient. The patient wished to proceed. She tolerated the injection well. She will continue with her home exercise program. She will contact me prior to her follow-up appointment in 4-6 weeks should any questions or concerns arise. Feel free to call me at any time should questions regarding her orthopedic management arise. I spent 22 minutes in reviewing the patient's records and imaging studies, seeing the patient and documenting in the medical record. Orders: Orders AMB Joint Injection/Aspiration Today M17.12 - Unilateral primary osteoarthritis, left knee Coding Level of Care Code Est Pt Level 3 (13495) Complex EM visit Add On G2211 Diagnoses Arthritis of left knee M17.12 Left knee pain M25.562 CPT Codes Coding - 95377 Large joint: 54069 - Large joint ([id number])
[2025-03-15 13:07] VITALS: BMI 36.1
--- OUTSIDE RECORDS SUMMARY | 2025-03-15 13:08 | XMS_ITS | Clinical Summary ---
Author Organization [facility] Address [address] [place] [address] Care Team Providers Care Keyboarding Teacher Name Role Phone Daniel Khalil MD Primary [...] 1 - PCV) 2022 Influenza Vaccine (#1) 2025 RSV Adult > 60+ Yrs or Pregn ant (1 - 1-dose 75+ series) 2032 Hepatitis B Vaccines Aged Out No long er eligible based on patient's age to complete this topic RSV Ped < 20 months Aged Out No longe r eligible based on patient's age to complete this topic Care Teams Keyboarding Teacher Relationship Specialty Start Date End Date Daniel Khalil MD [address] [place] [phone] PCP - General Family Medicine 01/26/21
--- OUTSIDE RECORDS SUMMARY | 2025-03-15 13:08 | XMS_ITS | Encounter Summary ---
Author Organization [facility] Address [address] [place] [address] Care Team Providers Care Collet Driller Name Role Phone Unavailable Primary Care Provider Unavailabl e Encounter Details Date Type Department Care Team (Late st Contact Info) Description 2020 [address]quisition [place] [address] [place] [address] Harpreet Zuniga MD [address] [place], [place] [id number] Encounter for laboratory testing for COVID-19 virus Social History Tobacco Use Types Packs/Day Years Used Date Smoking Tobacco: Never Assessed Comments Unknown Sex and Gender Information Value Date Recorded Sex Assigned at Not on file Legal Sex Female 3:16 PM EST Gender Identity Not on file Sexual Orientation Not on file documented as of this encounter Plan of Treatment Not on file documented as of this encounter Procedures Procedure Name Priority Date/Time Associated Diagnosis Comments COVID-19 (SARS-COV-2) - [facility] Routine 2020 3:17 PM EST Encounter for laboratory testing for COVID-19 virus [ICD-10-CM] documented in this encounter Results * COVID-19 (SARS-COV-2) ([facility]) (2020 3:17 PM EST) COVID-19 RT-PCR NOT-DETEC MARYJANE Not-Detec maryjane 09/07/2020 3:25 PM EST [facility] [place] Comment:Interpretation: The viral RNA was not detected, making the COVID-19 diagnosis less likely. Clinical correlation is highly recommended.Final report signed by Jose Davis, Ph.D., Laboratory DirectorTests performed at [facility] Nasopharyngeal swab / Unknown 2020 3:17 PM EST 2020 3:17 PM EST Narrative SRUTHI HERR - 09/07/2020 3:25 PM EST Performed by [facility], [employer] [address] [place] [address], CLIA# [id number] and [place] License# [id number] us Harpreet Zuniga MD MICROBIOLOGY - GENERAL ORDER CHAS Final Result SRUTHI SERENA Kelly HERR documented in this encounter Visit Diagnoses Diagnosis Encounter for laboratory testing for COVID-19 virus documented in this encounter
--- OUTSIDE RECORDS SUMMARY | 2025-03-15 13:08 | XMS_ITS ---
Author Name [facility] Organization Unknown Encounters Encounter Type Encounter Reason Primary Diagnosis Location Date Ambulatory [facility] [place] 03/06/2023 Ambulatory [facility] [place] 03/06/2023 Ambulatory [facility] [place] 02/06/2023
--- OUTSIDE RECORDS SUMMARY | 2025-03-15 13:08 | XMS_ITS | Clinical Summary ---
Author Organization [facility] Address [address] [address] Phone Care Team Providers Care Logistics Project Manager Name Role Phone Daniel Khalil MD Primary Care Prov ider Allergies Active Allergy Reactions Criticality Noted Date Comments Clindamycin Phosphate Rash Low 05/10/2024 Medications metFORMIN (GLUCOPHAGE) 1000 MG tablet Take 1,000 mg by mouth 2 (two) times a day with meals. Active glipiZIDE (GLUCOTROL) 5 MG tablet Take 5 mg by mouth 2 (two) times a day before meals. Active TRIAMTERENE, BULK, MISC Take 37.5 mg by mouth daily. Active simvastatin (ZOCOR) 20 MG tablet Take 20 mg by mouth nightly. Active albuterol 2.5 mg /3 mL (0.083 %) nebulizer solution Take 2.5 mg by nebulization as needed. Active dexAMETHasone (DECADRON) 4 MG tablet Take 4 mg by mouth. Active folic acid (FOLVITE) 1 MG tablet Take 1 mg by mouth daily. Active gabapentin (NEURONTIN) 300 MG capsule Take 1-2 capsules by mouth nightly at bedtime. Active lisinopril (PRINIVIL,ZESTRI L) 5 MG tablet Take 5 mg by mouth daily. Active magnesium 250 mg Tab Take by mouth daily. Active traMADoL (ULTRAM) 50 mg tablet Take 50 mg by mouth as needed for pain (specific location in comments). Active dulaglutide (TRULICITY) 3 mg/0.5 mL subcutaneous injection Inject 3 mg under the skin every 7 days. Active albuterol 90 mcg/actuation inhaler Inhale 2 puffs into the lungs every 6 (six) hours as needed for wheezing. Active Active Problems Problem Noted Date Diagnosed Date Fever 05/16/2024 Assessment & Plan (05/18/2024 12:15 PM EDT): With diffuse rash, thought to be drug eruption related to clindamycin. I dont see pustules to clinch the dx of AGEP although this could be the diagnosis as that is associated with fever, lasts 1-2 week after exposure, associated with leukocytosis and clinda is a known cause of this. Biopsy done on 05/12 Superficial and deep no perivascular interstitial dermal lymphocytic infiltrate with few eosinophils and neutrophils associated with spongiotic and basal epidermal changes... The differential diagnosis includes erythema multiforme or other angiocentric process (including lymphocytic, leukocytoclastic or urticarial vasculitis). Consulted Rheum who suggested a series of vasculitis labs which are pending and we will begin empiric steroids. Ddx could also include infection however given extensive prior work up. Only significant symptoms are fatigue, poor appetite, rash which seems to be improving. Left lower molar infection seems unlikely. Possible new virus. Rash and fevers are definitely improving. Plan to reconsult Rheumatology tomorrow to review clinical course and pending labwork. Consider repeat skin biopsy with general surgery tomorrow. Patient hopeful for discharge home tomorrow. - continue empiric methylpred 125 mg IV q24 hrs x3 - repeat UA, ESR, C3/C4, ANCAs, and rheumatoid arthritis serologies. - If labs are unrevealing and she has persistent absence of significant pulmonary and/or renal involvement, consider repeat skin bx for question IgA deposition. [ ] blood cultures NGTD [ ] repeat pcr panel ordered [ ] rheum labs as ordered Medication reaction 05/12/2024 Assessment & Plan (05/13/2024 3:19 PM EDT): Rash -Presenting with diffuse morbilliform rash as described above, with systemic signs of fever, elevated WBC count, all occurring after initiation of clindamycin. -Initially was treated for suspected dental caries with clindamycin however did not have any significant tenderness of her gums on exam, determined the patient had likely an aphthous ulcer in her tongue after having oral candidiasis after completing treatment for strep throat. -No prior history of rash or drug reaction in the past, has underlying history of rheumatoid arthritis on methotrexate, currently off DMARD medication since her prior hospitalization in early April for strep. On admission rash was suspected to be acute drug eruption and rash such as dress syndrome possibly mild to moderate. SJS thought to be less likely given no significant involvement of the mucosal membranes. -Regiscar score 3 - 4 if kidney function maintains elevated indicated possible or probable DRESS 05/13 Rash has migrated to include palms. Patient seen by infectious disease who has reviewed her history which is thought to be secondary to clindamycin. ID also noted that patient did not have mucosal involvement of the oral or vaginal region to suggest SJS. Differential still includes rheumatic fever, Sweet's syndrome, Still's disease, and rheumatoid arthritis are other possible etiologies. Leukocytosis could be due, at least in part, to outpatient prednisone. ID Agreed with stopping clindamycin. Supportive care. No recommendation for antibiotics. Labs - hep B IgM non-reactive. Hep B surface AB neg, Hep CAB non- reactive. -Heterophile Ab nonreactive. -EBV,CMV pending Plan: Continue close clinical monitoring, Monitor for LFT abnormalities, Follow skin Biopsy performed, pending pathology Blood cultures ordered and pending If patient symptoms worsen recommend initiating steroids, which will likely require a prolonged taper. MARKIE (acute kidney injury) 05/12/2024 Assessment & Plan (05/13/2024 3:39 PM EDT): Resolved with IV fluids. -Serum creatinine elevated to 1.3, baseline around 0.7, BUN 25 -Suspect secondary to prerenal azotemia however given diffuse rash and possible drug reaction. -Repeat renal labs in a.m. Hypertension 04/13/2024 Assessment & Plan (04/13/2024 9:15 AM EDT): Patient takes Triamterene for high blood pressure. Patient has been normotensive during stay. -Holding hydrochlorothiazide/triamterene for now Arthritis 04/13/2024 Assessment & Plan (05/18/2024 12:13 PM EDT): She has had some joint pains knees, back hands, thumb and index fingers. Ongoing and new but severe starting 1 year ago. She saw a physician (not a psychiatrist) in [place] who might have started the methotrexate. She has not taken it for sure since Apr. And doesn't have a regular prescriber of this. Daughter and patient tell me she is not sure she ever took the methotrexate she was prescribed. She has upcoming rheumatology intake with Dr Estrada in 10/2024. Assessment & Plan (04/13/2024 9:17 AM EDT): Patient has history of arthritis, following with Dr. Estrada of rheumatology. Medications reviewed with healthcare proxy/daughter, confirms taking methotrexate 2.5 mg tablets, 3 tablets every week. -Holding methotrexate in the setting of fever, infection Headache 04/13/2024 Assessment & Plan (04/13/2024 9:19 AM EDT): Patient reported generalized headache for the last 2 days, across her forehead. Currently denying pain, however reporting pressure . Nontender sinuses. -Monitor -Robitussin x 1, and as needed -As needed Tylenol, oxycodone Strep throat 04/12/2024 Assessment & Plan (04/13/2024 9:23 AM EDT): Strep throat Symptoms started approximately 2 days ago, has an ill contact at home and also tested positive for [id number] strep testing at urgent care, suspect this to be primary presentation that is causing symptoms of fever, generalized weakness and SIRS response, suspect urinary frequency to be secondary to febrile illness 04/13: No difficulty swallowing. No uvula deviation. She feels her sore throat is improving. Denies any nausea, vomiting. Fevers downtrending. Tolerating ceftriaxone. Fever curve improving, leukocytosis downtrending. Blood cultures remain negative. Monitoring for 48 hours. -Continue ceftriaxone-day 2 -Probiotic -Tylenol, Cepacol lozenge as needed -Following blood culture, throat culture pending Fever, unspecified 04/12/2024 Urinary frequency 04/12/2024 Assessment & Plan (04/13/2024 9:14 AM EDT): Urinary frequency No CVA tenderness on exam, no hematuria or dysuria, urinary frequency also started proximally 2 days ago and the consolation symptoms of sore throat and fever. Urinalysis did reveal trace leukocyte esterase, trace blood, Urine sediment positive for WBC cells, trace bacteria. -Covering with ceftriaxone, stated above -Urine culture pending SIRS (systemic inflammatory response syndrome) 0 04/12/2024 Assessment & Plan (05/13/2024 3:38 PM EDT): -Fever, leukocytosis, tachycardia mild tachypnea suspect secondary to acute drug reaction. Inflammatory markers elevated however patient has known RA on methotrexate. No signs of infection Procalcitonin elevated to 0.76, P2 26.8, ESR 32. -RYLIE is positive however patient has known RA treks 8. -No active source of infection at this time; likely inflammatory fevers from drug reaction and not infectious. Plan: Continue monitoring fever, Tylenol as needed Assessment & Plan (04/13/2024 9:11 AM EDT): Febrile, tachycardic, mildly tachypneic significant leukocytosis with possible source as group A strep versus less likely UTI. Patient's tachycardia has improved, lactate normalized. Blood cultures remain negative. Fevers downtrending. -Monitoring blood cultures, negative to date -Urine culture ordered and pending -Throat culture ordered and pending -Continue antibiotics as above. Microcytic anemia 04/12/2024 Assessment & Plan (04/13/2024 9:11 AM EDT): Presented with microcytic anemia with a hemoglobin of 9.9. History of beta thalassemia trait. This is not far from her baseline. Anemia of chronic disease on iron studies. Takes iron at home. Denies any black or bloody stools, is on chronic Mobic for arthritis and can increase the risk of PUD. No uremia on chemistry profile. -Restart meloxicam -Iron studies show an anemia of chronic disease Restart home iron, folic acid supplement -Obtaining FIT, pending -Trend hemoglobin -Can consider outpatient follow-up with gastroenterology/colonoscopy -She was referred to hematology outpatient, maintain follow-up Dyspnea on exertion 04/12/2024 Assessment & Plan (04/13/2024 9:06 AM EDT): This is likely secondary to acute infection, compounded by anemia. CXR negative, BNP and troponin negative. EKG without any acute ischemic changes. Lungs clear, no lower extremity edema. Per patient states she has had a stress test a few years prior however is unable to recall details of that, does not have a pear picker. -PT -Considering echocardiogram if symptoms persist or worsen Acute UTI 04/12/2024 Acute appendicitis with loca lized peritonitis without abscess 04/09/2019 Acute appendicitis with loca lized peritonitis without perforation 04/08/2019 Assessment & Plan (04/09/2019 10:10 AM EDT): POD #1 s/p Lap appendectomy. Patient is doing well postop, she has eaten this morning and is getting up out of bed. Likely home today. Defer to Dr. Dugan Hypercholesterolemia 04/08/2019 Assessment & Plan (04/08/2019 1:18 PM EDT): Continue statin Type 2 diabetes mellitus wit hout complication, without long-term current use of insulin 04/08/2019 Assessment & Plan (05/18/2024 12:12 PM EDT): HEMOGLOBIN A1C Date Value Ref Range Status 05/14/2024 7.0 (H) 4.3 - 5.8 % Final Very elevated glucoses due to high dose IV steroids. Started on NPH 15U bid and GABINO. Assessment & Plan (05/13/2024 3:34 PM EDT): Type 2 diabetes -Home medications We held on admission however blood sugars now elevated up to 307 at lunchtime. Elevated blood sugars could be related to recent prednisone use. - Will check hemoglobin A1c - Start on basal insulin 5 units nightly - POC before meals and at bedtime with lispro and ISS. Assessment & Plan (04/12/2024 10:03 PM EDT): Type 2 diabetes On glipizide, metformin and Trulicity Continue SSI low with consistent carbohydrate diet while admitted. Assessment & Plan (04/09/2019 10:11 AM EDT): Can resume oral meds when the patient goes home and is eating well. Will defer starting glargine if patient is going home today, Family History Medical History Relation Comments Cancer Brother Hypertension Father Diabetes Mother Hypertension Mother Diabetes Sister Hypertension Sister Relation Status Comments Brother Father Mother Sister Social History Tobacco Use Types Packs/Day Years Used Date Smoking Tobacco: Never Smokeless Tobacco: Never Alcohol Use Standard Drinks/Week Comments No 0 (1 standard drink = 0.6 oz pur e alcohol) Education Answer Date Recorded Are you interested in more education? Not on cookie e 11/30/2022 Are you concerned about learning? Not on file 11/30/2022 No 11/30/2022 No 11/30/2022 Food Answer Date Recorded Within the past 6 months we worried whether our food would run out before we got money to buy more. Never True 05/16/2024 Within the past 6 months the food we bought just didn't last and we didn't have enough money to get more. Never True Residential Stability Answer Date Recor ded What is your housing situation today? I have sabine sing 05/16/2024 How many times have you move d in the past 12 months? Zero (I did not move) 05/16/2024 Paying for Meds Answer Date Recorded Do you have trouble paying for medicines? No 05/16/2024 Paying Utility Bills Answer Date Record ed Do you have trouble paying your heating or elect ricity bill? No 05/16/2024 Transportation Answer Date Recorded Has the lack of transportati on kept you from medical appointments or from getting medications? No 05/16/2024 Digital Access Answer Date Recorded No 05/16/2024 Yes 05/16/2024 Do you have reliable internet access at home? Ye s 05/16/2024 Do you have a device (e.g., phone, tablet, computer) with a working camera? Yes 05/16/2024 Intimate Partner Violence Answer Date R ecorded Are you denied basic needs s uch as food, clothing, or medical care? No 05/16/2024 In the past 12 months have y ou been in a relationship with a person who hurts, threatens, or tries to control you? No 05/16/2024 Are you denied basic needs s uch as food, clothing, or medical care? No 05/16/2024 In the past 12 months have y ou been in a relationship with a person who hurts, threatens, or tries to control you? No 05/16/2024 Comments No Sex and Gender Information Value Date Recorded Sex Assigned at Female 10/05/2017 5:23 PM EST Legal Sex Female 9:52 PM EDT Gender Identity Female 10/05/2017 5:23 PM EST Sexual Orientation Straight 2018 4: 01 PM EST Last Filed Vital Signs Vital Sign Reading Time Taken Comments Blood Pressure 130/68 05/19/2024 7:47 AM EDT Pulse 82 05/19/2024 7:47 AM EDT Temperature 36.1 C (97 F) 05/19/2024 7:47 AM EDT Respiratory Rate 16 05/19/2024 7:47 AM EDT Oxygen Saturation 97% 05/19/2024 7:47 AM EDT Inhaled Oxygen Concentration - - Weight 74.9 kg (165 lb 0.5 oz) 05/18/2024 5:57 A M EDT Height 154 cm (5' 0.63 ) 05/16/2024 10:24 PM EDT Body Mass Index 31.56 05/16/2024 10:24 PM EDT Plan of Treatment Health Maintenance Due Date Last Done Comments DEPRESSION SCREENING 1969 MAMMOGRAM 1997 COLOGUARD 2002 COLONOSCOPY 2002 FOBT 2002 SIGMOIDOSCOPY 2002 VIRTUAL COLONOSCOPY 2002 ZOSTER VACCINES (1 of 2) 2007 PNEUMOCOCCAL VACCINES (50+ years) (2 of 2 - PCV) 09/24/2014 09/24/2013 DIABETIC EYE EXAM 04/08/2019 OSTEOPOROSIS SCREENING INITIAL (ONE-TIME) 2022 COVID-19 VACCINE ( season) 2024 09/13/2021, 08/23/2021 BLOOD PRESSURE 11/08/2024 05/10/2024 HEMOGLOBIN A1C 11/12/2024 05/14/2024, 06/13/2022 COLORECTAL CANCER SCREENING 04/14/2025 FIT TEST 04/14/2025 04/14/2024 CREATININE LEVEL 05/19/2025 05/19/2024, , 05/17/2024, Additional history exists POTASSIUM LEVEL 05/19/2025 05/19/2024, 05/05, 05/17/2024, Additional history exists Adult Td,Tdap Booster 08/14/2031 08/14/2021, 011 RSV VACCINE (1 - 1-dose 75+ series) 2032 MENINGOCOCCAL VACCINES (ACWY) Aged Out 05/05/2012 No longer eligible based on patient's age to complete this topic SMOKING STATUS SCREENING (Once After 26 Yrs) Completed 05/12/2024 HEPATITIS C SCREENING Completed 05/13/2024, 021 HIB VACCINES Aged Out No longer eligi ble based on patient's age to complete this topic MENINGOCOCCAL VACCINES (B) Aged Out N o longer eligible based on patient's age to complete this topic Medical Devices Not on file Procedures Procedure Name Priority Date/Time Associated Diagnosis Comments COMPREHENSIVE METABOLIC PANEL Routine 05/19/2024 9:04 AM EDT HEMOGLOBIN A1C Routine 05/14/2024 5:49 AM EDT HEPATITIS C ANTIBODY, QUALITATIVE Routine 05/13/2024 5:46 AM EDT HC BLOOD OCCULT FECAL HGB DETER IA QUAL FECES 1-3 Routine 04/14/2024 6:09 AM EDT from Last 3 Months or Most Recently Relevant to Health Maintenance Results * (ABNORMAL) Comprehensive metabolic panel (05/19/2024 9:04 AM EDT) SODIUM 137 133 - 146 mmol/L [facility] POTASSIUM 3.5 3.3 - 5.1 mmol/L [facility] CHLORIDE 101 96 - 108 mmol/L [facility] CO2 27 21 - 35 mmol/L [facility] BUN 22(H) 6 - 19 mg/dL [facility] CREATININE 0.70 0.5 - 1.5 mg/dL [facility] GLUCOSE 165(H) 70 - 99 mg/dL [facility] ALBUMIN 3.2(L) 3.9 - 4.8 g/dL [facility] TOTAL PROTEIN 6.3(L) 6.5 - 8.0 g/dL [facility] CALCIUM 8.7 8.4 - 10.3 mg/dL [facility] ALKALINE PHOSPHATASE 147(H) 39 - 117 U/L [facility] TOTAL BILIRUBIN 0.3 0.0 - 1.2 mg/dL [facility] AST 22 0 - 37 U/L [facility] ALT 25 0 - 40 U/L [facility] GLOBULIN 3.1 1 - 4.8 g/dL [facility] EGFR 95 >59 mL/min/1.7 3m2 [facility] Comment:Estimated glomerular filtration rate calculated using the CKD-EPI refit equation. ANION GAP 13 10 - 20 mmol/L [facility] Blood 05/19/2024 9:04 AM EDT 05/19/2024 9:19 AM EDT us Anastasiia Lizarraga DO, MPH LAB BLOOD ORDER CHAS Final Result [address] [address] * (ABNORMAL) Hemoglobin A1c (05/14/2024 5:49 AM EDT) HEMOGLOBIN A1C 7.0(H) 4.3 - 5.8 % [facility] 05/14/2024 5:49 AM EDT 05/14/2024 6:09 AM EDT us Makenzie Bedolla MD LAB BLOOD ORDERABLES Final Resu lt [address] [address] * Hepatitis C antibody, qualitative (05/13/2024 5:46 AM EDT) HCV NON-REACTIV E NON-REACTI VE [facility] Blood 05/13/2024 5:46 AM EDT 05/13/2024 6:31 AM EDT us Cj Pina DO LAB BLOOD ORDERABLES Final Res ult [address] [address] * Fecal immunochemical test x1 (FIT) (04/14/2024 6:09 AM EDT) Immuno Fecal Occult Negative Negative [facility] Stool (Stool) 04/14/2024 6:0 9 AM EDT 04/14/2024 6:20 AM EDT us Solitario Dai PA-C BODY FLUIDS AND STOOLS ORDERABLES Final Result Performing Organization Address [facility] Co de Phone Number [address] [address] from Last 3 Months or Most Recently Relevant to Health Maintenance Insurance MEDICARE PART A & B [facility] MEDICARE PART A & B HEALTH MEDICARE PART A & [place] & B Member Subscriber Plan / Payer (Ef fective 2023-) Name:Michelle Paiz Member ID:[id number] Relation to Subscriber:Self Name:Michelle Paiz Subscriber ID:[id number] Payer ID:[id number] Group ID:Not on file Type:Medicare Address: [employer] [address] [place] [id number] [place] [facility] Advance Directives For more information, please contact: [phone] (9AM - 5PM [place], Saturday-Saturday) Documents on File Type Date Recorded Patient [employer] Specialist Expl kristel [employer] Proxy 05/15/2024 4:41 PM * Full Code (Latest Code Status on File) Date Activated Date Inactivated Comments 05/16/2024 11:26 PM Question Answer Comments Code Status Confirmed With: Patient * Full Code Date Activated Date Inactivated Comments 05/12/2024 6:39 PM 05/16/2024 11:26 PM Question Answer Comments Code Status Confirmed With: Patient Code Status Communicated To: Inpatient Attending * Full Code Date Activated Date Inactivated Comments 04/12/2024 11:02 PM 05/12/2024 6:39 PM Question Answer Comments Code Status Confirmed With: Patient Code Status Communicated To: Inpatient Attending * Full Code (Presumed) Date Activated Date Inactivated Comments 04/08/2019 1:38 PM 04/09/2019 3:42 PM * Full Code (Presumed) Date Activated Date Inactivated Comments 04/08/2019 2:27 AM 04/08/2019 1:38 PM Care Teams Logistics Project Manager Relationship Specialty Start Date End Date Daniel Khalil MD [address] [place] [phone] [email or web address] PCP - General Family Medicine 04/12/24 Additional Source Comments The information contained in this document represents components of the legal health record. It is not the complete legal health record.[facility]
== END 2025-03-15 13:19 | disposition home or self-care (01) ==
LOC: HO.HOS 13:02
PROVIDERS: PCP Family Medicine; Visit Provider Orthopaedic Surgery
DX: M17.12 Unilateral primary osteoarthritis, left knee (principal); M25.562 Pain in left knee
CPT/HCPCS: 20610; 99213

== ENCOUNTER → 2025-03-15 13:01 | Outpatient (BNVA) | payer MEDICARE, MEDICAID, SELFPAY | PROVIDERS: PCP Family Medicine; Visit Provider Orthopaedic Surgery | DX: M17.11 Unilateral primary osteoarthritis, right knee (principal); M25.562 Pain in left knee | CPT/HCPCS: 20610; 99212; J1010; J2003 ==

== ENCOUNTER 2025-04-14 12:53 | Outpatient (AMB) | payer MEDICARE, MEDICAID, SELFPAY ==
--- NOTE | 2025-04-14 13:00 | A.OFFVIS_ITS ---
Vital Signs 04/14/25 13:02 Height 4 ft 8 in Weight 161 lb BMI 36.1 Intake Visit Reasons: Inj Bilat basal injection Intake Note: Michelle 69 yr old female presents today wit her daughter for interpretation, for bilateral basal joint injections. Last injection for her right was on 09/30/24 and her left was last injected on 11/11/24. States she felt relief and would like to repeat injection. 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 She has bilateral basal joint arthritis. She has a Hx of basal joint injections, left 11/08/24 & right 09/30/24, with good relief. She complains of pain at the base of her thumbs, worse with pinching or gripping. She would like repeat injections today. She denies any numbness, tingling or locking. She does say she wakes up from her hand pain at night. She is a Diabetic, she says this is well-controlled with medication & a strict diet. She says her sugars can go up to ~300 after eating. [facility] Medical History (Updated 09/30/24 @ 13:51 by Benjamín Quick) Diabetes GERD (gastroesophageal reflux disease) Elevated cholesterol HTN (hypertension) Arthritis Social History Current occupational status: unemployed Current occupation: rt hand Physical Exam Vital Signs: BMI result Body Mass Index 36.1 Extrem Other: Evaluation of Bilateral Upper Extremity: The patient is alert, oriented, and in no acute distress Neuro: Median, Ulnar, Radial nerves motor and sensory intact and sensation is normal to the tips of all digits Vascular: Cap refill brisk ROM: She can make a fist and extend all her digits No locking or catching Most tender over the basal joint on the right Pos Shoulder sign bilaterally Pos CMC grind bilaterally Most tender over the thumb MPC joint on the left Also Tender over the basal joint on the left Radiographs: 3 views of the bilateral hands, with attention to the thumbs, from 11/11/24 were reviewed by me today in clinic. Concerning the right hand, they show: basal joint arthritis with joint space narrowing, subchondral sclerosis, and osteophyte formation Concerning the left hand, they show: basal joint arthritis with joint space narrowing, subchondral sclerosis, and osteophyte formation. Only very Mild MCP joint arthritis. Office Procedures AMB Fracture Care Details: No fracture, injections x 2 Fracture Billing Code: Fracture Billing Code Assessment & Plan Assessment & Plan (1) Arthritis of carpometacarpal (CMC) joint of right thumb: Code(s): M18.11 - Unilateral primary osteoarthritis of first carpometacarpal joint, right hand Category: Medical (2) De Quervain's tenosynovitis, left: Code(s): M65.4 - Radial styloid tenosynovitis [de Quervain] Category: Medical (3) De Quervain's tenosynovitis, right: Code(s): M65.4 - Radial styloid tenosynovitis [de Quervain] Category: Medical (4) Arthritis of carpometacarpal (CMC) joint of left thumb: Code(s): M18.12 - Unilateral primary osteoarthritis of first carpometacarpal joint, left hand Category: Medical (5) Diabetes: Code(s): E11.9 - Type 2 diabetes mellitus without complications Category: Medical Plan Assessment & Plan: 1. Left basal joint osteoarthritis S/P injection on 04/14/25, 11/11/24 Positive shoulder sign Patient reports MCP joint pain today, but X-rays show very mild MCP joint arthritis 2. Right basal joint osteoarthritis S/P injection on 04/14/25, 09/30/24 Positive shoulder sign I educated her about these conditions I discussed operative and non-operative treatment options The patient would like to proceed with an injection today I discussed activity modification, she is to limit or avoid any heavy or repetitive pinching, gripping, lifting, or scissoring activities She will continue to wear her comfort cool braces with daily activities Injection #1: The risks and benefits of a steroid injection including but not limited to risk of damage to blood vessels, nerve, tendon, infection, skin bleaching, persistent or worsening pain, and failure to improve symptoms were discussed with the patient and they wish to proceed with the steroid injection. We discussed whether to inject the basal joint or the MCP joint and decided on the basal joint for today. Once consent was obtained the skin over the dorsum of the Left basal joint was sterilely prepped. The joint was then injected with a combination of 1 mL of dexamethasone (4mg/ml) and 1% plain Lidocaine. The patient appears to have tolerated the procedure well and with no complications. She had good early relief before leaving clinic today. She knows that they may not have another steroid injection into this joint for least 4 months. Injection #2: The risks and benefits of a steroid injection including but not limited to risk of damage to blood vessels, nerve, tendon, infection, skin bleaching, persistent or worsening pain, and failure to improve symptoms were discussed with the patient and they wish to proceed with the steroid injection. Once consent was obtained the skin over the dorsum of the Right basal joint was sterilely prepped. The joint was then injected with a combination of 1 mL of dexamethasone (4mg/ml) and 1% plain Lidocaine. The patient appears to have tolerated the procedure well and with no complications. She had good early relief before leaving clinic today. She knows that they may not have another steroid injection into this joint for least 4 months. 3. Right De Quervains Tenosynovitis Not currently symptomatic 4. Left De Quervains Tenosynovitis, S/P injection Date of injection: 04/03/23 Patient reports no relief from her injection No tenderness over the 1st dorsal compartment today. Scribed for Alexandria Anders MD by Benjamín Quick, medical appointment clerk, on 04/14/25 at 1:10 PM, EST. Coding Level of Care Code Est Pt Level 3 (32933) Diagnoses Arthritis of carpometacarpal (CMC) joint of right thumb M18.11 De Quervain's tenosynovitis, left M65.4 De Quervain's tenosynovitis, right M65.4 Arthritis of carpometacarpal (CMC) joint of left thumb M18.12 Diabetes E11.9 CPT Codes Fracture Care - Fracture Billing Code: Fracture Billing Code ([id number])
[2025-04-14 13:02] VITALS: BMI 36.1
--- OUTSIDE RECORDS SUMMARY | 2025-04-14 15:53 | XMS_ITS | Clinical Summary ---
Author Organization [facility] Address [address] [place] [address] Care Team Providers Care Fire Control Mechanic Name Role Phone Unavailable Primary Care Provider Unavailabl e Social History Tobacco Use Types Packs/Day Years Used Date Smoking Tobacco: Never Assessed Comments Unknown Sex and Gender Information Value Date Recorded Sex Assigned at Not on file Legal Sex Female 3:16 PM EST Gender Identity Not on file Sexual Orientation Not on file Plan of Treatment Health Maintenance Due Date Last Done Comments Advance Care Planning 1955 Hepatitis C Virus Screening 1955 DTaP/Tdap/Td Vaccines (1 - Tdap) 1976 Mammogram 1997 Colonoscopy 2002 Pneumococcal Vaccines 50+ (1 of 1 - PCV) 2007 Zoster (Shingles) Vaccine (1 of 2) 2007 DXA Bone Density (Females,Ag es 65 and older) 2022 COVID-19 Vaccine ( - 2023-2 5 season) 2024 Influenza Vaccine 03/05/2025 RSV Vaccine 60 years and old er and Patients (1 - 1-dose 75+ series) 2032 Hepatitis B Vaccines Aged Out No long er eligible based on patient's age to complete this topic Insurance MEDICAID OUT OF STATE [facility]
--- OUTSIDE RECORDS SUMMARY | 2025-04-14 15:53 | XMS_ITS | Encounter Summary ---
Author Organization [facility] Address [address] [place] [address] Phone Care Team Providers Care Metal Machine Setter Name Role Phone Daniel Khalil MD Primary Care Prov ider Daniel Khalil MD Unavailable + Daniel Khalil MD Primary Care Prov ider Encounter Details Date Type Department Care Team (Late st Contact Info) Description 09/30/2017 Procedure Pass [facility], Ct Scan - [address] [address] Social History Tobacco Use Types Packs/Day Years Used Date Smoking Tobacco: Never Smokeless Tobacco: Never Alcohol Use Standard Drinks/Week Comments No 0 (1 standard drink = 0.6 oz pur e alcohol) Comments Unknown Sex and Gender Information Value Date Recorded Sex Assigned at Female 10/05/2017 5:23 PM EST Legal Sex Female 9:52 PM EDT Gender Identity Female 10/05/2017 5:23 PM EST Sexual Orientation Straight 2018 4: 01 PM EST documented as of this encounter Plan of Treatment Not on file documented as of this encounter Visit Diagnoses Not on filedocumented in this encounter Additional Health Concerns Infection Onset Date Last Indicated Resolved Time CoV-Risk 07/21/2021 07/21/2021 07/31/2021 1:23 AM EST CoV-Risk Comment:Per note documentation 04/12/2024 04/12/2024 09/09/202 4 6:51 AM EDT CoV-Risk Comment:Per note documentation 05/12/2024 05/12/2024 7:55 AM EDT documented as of this encounter Care Teams Metal Machine Setter Relationship Specialty Start Date End Date Daniel Khalil MD [email or web address] PCP - General 05/21/17 04/11/24 Daniel Khalil MD [address] [place] [phone] [email or web address] PCP - General Family Medicine 04/12/24 Daniel Khalil MD [address] [place] [address] [email or web address] Insurance Assigned Provider 11/02/17 12/22/22 documented as of this encounter Additional Source Comments The information contained in this document represents components of the legal health record. It is not the complete legal health record.[facility]
--- OUTSIDE RECORDS SUMMARY | 2025-04-14 15:53 | XMS_ITS | Encounter Summary ---
Author Organization [facility] Address [address] [place] [address] Phone Care Team Providers Care School Counsellor Name Role Phone Daniel Khalil MD Primary Care Prov ider Encounter Details Date Type Department Care Team (Late st Contact Info) Description 03/24/2025 Procedure Pass [facility], [facility] [address] [place] [address] Social History Tobacco Use Types Packs/Day Years [...] Diagnoses Not on filedocumented in this encounter Care Teams School Counsellor Relationship Specialty Start Date End Date Daniel Khalil MD [address] [place] [phone] [email or web address] PCP - General Family Medicine 04/12/24 documented as of this encounter Additional Source Comments The information contained in this document represents components of the legal health record. It is not the complete legal health record.[facility]
--- OUTSIDE RECORDS SUMMARY | 2025-04-14 15:53 | XMS_ITS | Encounter Summary ---
Author Organization [facility] Address [address] [place] [address] Phone Care Team Providers Care Precipitate Washer Name Role Phone Daniel Khalil MD Primary Care Prov ider Daniel Khalil MD Unavailable + Daniel Khalil MD Primary Care Prov ider Encounter Details Date Type Department Care Team (Late st Contact Info) Description 07/21/2021 Procedure Pass [facility], Ct Scan - [address] [address] Social History Tobacco Use Types Packs/Day Years Used Date Smoking Tobacco: Never Smokeless Tobacco: Never Alcohol Use Standard Drinks/Week Comments No 0 (1 standard drink = 0.6 oz pur e alcohol) Comments No Sex and Gender Information Value Date Recorded Sex Assigned at Female 10/05/2017 5:23 PM EST Legal Sex Female 9:52 PM EDT Gender Identity Female 10/05/2017 5:23 PM EST Sexual Orientation Straight 2018 4: 01 PM EST documented as of this encounter Functional Status * Calculated C-SSRS Risk Score (Lifetime/Recent) Answer Date of Assessment Author No Risk Indicated 07/21/2021 5:36 PM EST Brandie Boyd RN * Hand Suicide Severity Rating Scale (Screener/Recent Self-Report) Question Answer Date of Assessment Author 1. Wish to be (Past 1 Month) No 021 5:36 PM EST Brandie Boyd RN 2. Non-Specific Active Suici óscar Thoughts (Past 1 Month) No 07/21/2021 5:36 PM EST Skip Boyd RN 6. Suicidal Behavior (Lifetime) No 5:36 PM EST Brandie Boyd RN documented as of this encounter Plan of Treatment Not on file documented as of this encounter Visit Diagnoses Not on filedocumented in this encounter Additional Health Concerns Infection Onset Date Last Indicated Resolved Time CoV-Risk 07/21/2021 07/21/2021 07/31/2021 1:23 AM EST CoV-Risk Comment:Per note documentation 04/12/2024 04/12/2024 6:51 AM EDT CoV-Risk Comment:Per note documentation 05/12/2024 05/12/2024 7:55 AM EDT documented as of this encounter Care Teams Precipitate Washer Relationship Specialty Start Date End Date Daniel Khalil MD [email or web address] PCP - General 05/21/17 04/11/24 Daniel Khalil MD [address] [place] [phone] [email or web address] PCP - General Family Medicine 04/12/24 Daniel Khalil MD [address] [place] [address] [email or web address] Insurance Assigned Provider 11/02/17 12/22/22 documented as of this encounter Additional Source Comments The information contained in this document represents components of the legal health record. It is not the complete legal health record.[facility]
--- OUTSIDE RECORDS SUMMARY | 2025-04-14 15:53 | XMS_ITS | Encounter Summary ---
Author Organization [facility] Address [address] [place] [phone] Phone Care Team Providers Care Sewer And Drain Technician Name Role Phone Daniel Khalil MD Primary Care Prov ider Reason for Referral * MRI/CAT Scan - Closed Specialty Diagnoses / Procedures Referred By Blayne mancini Referred To Contact Radiology Diagnoses Radiculopathy, lumbar region Procedures MRI Lumbar Spine Simeon Jimenez PA [address] [place] [phone] Phone: tel: fax: Referral ID Status Reason Start Date Expiration Date Visits Re quested Visits Authorized [id number] Closed 03/24/2025 03/24/2026 1 1 Encounter Details Date Type Department Care Team (Latest Contact Info) Description 03/24/2025 Transcribe Orders Virtual Department [address] [place] [address] Simeon Jimenez PA [address] [place] [phone] Radiculopathy, lumbar region (Primary Dx) Social History Tobacco Use Types Packs/Day Years [...] on file documented as of this encounter Results * MRI LUMBAR SPINE (NEURO) WITH AND WITHOUT CONTRAST (03/25/2025 10:24 PM EDT) Anatomical Region Laterality Modality L-spine Magnetic Resonan ce 03/29/2025 8:57 AM EDT Impressions 03/29/2025 9:20 AM EDT Status post posterior decompression at the L3-L4 and L4-5 levels. There is suspected impingement of the left L5 nerve root within the left L4-5 subarticular zone. There is also moderate left foraminal narrowing at this level. Narrative 03/29/2025 9:20 AM EDT MRI LUMBAR SPINE (NEURO) WITH AND WITHOUT CONTRAST Referring clinician's provided indication for this examination in Epic: Outside Radiology Order; radiculopathy TECHNIQUE: MRI LUMBAR SPINE (NEURO) WITH AND WITHOUT CONTRAST Multi-sequence, multi-planar MRI of the lumbar spine was performed before and after administration of intravenous contrast. COMPARISON: None. FINDINGS: LUMBAR SPINE: Postoperative findings: There are postoperative changes of: Posterior decompression at the L3-L4 and L4- L5 levels. There is fluid signal and enhancement within the posterior paraspinal soft tissue, likely post-operative in nature. No loculated fluid collection is identified. Alignment and Vertebrae: Normal alignment. No compression fracture. Marrow: No bone marrow replacing lesion. Discs and Endplates: Mild multilevel disc height loss throughout the lumbar spine. Conus: Normal. Other Findings: None. Findings by level: T12-L1: Mild bilateral facet arthropathy, without significant canal or foraminal narrowing. L1-L2: Mild diffuse disc bulge and mild bilateral facet arthropathy, resulting in mild bilateral foraminal narrowing. L2-L3: Mild diffuse disc bulge and mild bilateral facet arthropathy, resulting in mild canal narrowing and mild bilateral foraminal narrowing. L3-L4: Status post posterior decompression. Diffuse disc bulge. Mild bilateral facet arthropathy. Encroachment of the left subarticular zone and abutment of the left L4 nerve root but without specific evidence for impingement. Mild bilateral foraminal narrowing. L4-L5: Status post posterior decompression. Moderate left and moderate facet arthropathy. Diffuse disc bulge. Moderate residual canal narrowing. Encroachment of the left subarticular zone with suspected left L5 nerve root impingement. Moderate left and mild right foraminal narrowing. L5-S1: Diffuse disc bulge and moderate bilateral facet arthropathy with mild bilateral foraminal narrowing. Procedure Note Gregory Díaz MD - 03/29/2025 MRI LUMBAR SPINE (NEURO) WITH AND WITHOUT CONTRAST Referring clinician's provided indication for this examination in Epic:Outside Radiology Order; radiculopathy TECHNIQUE: MRI LUMBAR SPINE (NEURO) WITH AND WITHOUT CONTRAST Multi-sequence, multi-planar MRI of the lumbar spine was performed beforeand after administration of intravenous contrast. COMPARISON: None. FINDINGS: LUMBAR SPINE: Postoperative findings: There are postoperative changes of: Posterior decompression at the L3-L4and L4- L5 levels. There is fluid signal and enhancement within the posterior paraspinal softtissue, likely post-operative in nature. No loculated fluid collection isidentified. Alignment and Vertebrae: Normal alignment. No compression fracture. Marrow: No bone marrow replacing lesion. Discs and Endplates: Mild multilevel disc height loss throughout thelumbar spine. Conus: Normal. Other Findings: None. Findings by level: T12-L1: Mild bilateral facet arthropathy, without significant canal orforaminal narrowing. L1-L2: Mild diffuse disc bulge and mild bilateral facet arthropathy,resulting in mild bilateral foraminal narrowing. L2-L3: Mild diffuse disc bulge and mild bilateral facet arthropathy,resulting in mild canal narrowing and mild bilateral foraminalnarrowing. L3-L4: Status post posterior decompression. Diffuse disc bulge. Mildbilateral facet arthropathy. Encroachment of the left subarticular zoneand abutment of the left L4 nerve root but without specific evidence forimpingement. Mild bilateral foraminal narrowing. L4-L5: Status post posterior decompression. Moderate left and moderatefacet arthropathy. Diffuse disc bulge. Moderate residual canal narrowing.Encroachment of the left subarticular zone with suspected left L5 nerveroot impingement. Moderate left and mild right foraminal narrowing. L5-S1: Diffuse disc bulge and moderate bilateral facet arthropathy withmild bilateral foraminal narrowing. IMPRESSION: Status post posterior decompression at the L3-L4 and L4-5 levels. There issuspected impingement of the left L5 nerve root within the left L4-5subarticular zone. There is also moderate left foraminal narrowing at thislevel. Simeon PORTILLO IMG MR XSPECIALTY Final R esult documented in this encounter Visit Diagnoses Diagnosis Radiculopathy, lumbar region- Primary Thoracic or lumbosacral neuritis or radiculitis, unspecified Radiculopathy, lumbar region Thoracic or lumbosacral neuritis or radiculitis, unspecified documented in this encounter Care Teams Sewer And Drain Technician Relationship Specialty Start Date End Date Daniel Khalil MD [address] [place] [phone] [email or web address] PCP - General Family Medicine 04/12/24 documented as of this encounter Additional Source Comments The information contained in this document represents components of the legal health record. It is not the complete legal health record.[facility]
--- OUTSIDE RECORDS SUMMARY | 2025-04-14 15:53 | XMS_ITS | Clinical Summary ---
Author Organization [facility] Address [address] [place] [address] Care Team Providers Care Manager Underwriting Name Role Phone Daniel Khalil MD Primary [...] age to complete this topic Care Teams Manager Underwriting Relationship Specialty Start Date End Date Daniel Khalil MD [address] [place] [phone] PCP - General Family Medicine 01/26/21
--- OUTSIDE RECORDS SUMMARY | 2025-04-14 15:53 | XMS_ITS | Clinical Summary ---
Author Organization [facility] Address [address] [address] Phone Care Team Providers Care Cutter Banana Room Name Role Phone Daniel Khalil MD Primary [...] ago. She saw a physician (not a road conductor) in [place] who might have started the methotrexate. She [...] at home and also tested positive for ynrax-he-jcib strep testing at urgent care, suspect this [...] details of that, does not have a pl sql programmer. -PT -Considering echocardiogram if symptoms persist or [...] glargine if patient is going home today, Encounters Date Type Department Care Team Description 03/25/2025 9:05 PM EDT - 03/25/2025 11:59 PM EDT Hospital Encounter [address] [address] Simeon Jimenez PA Discharge Disposition: Home or Self Care 03/24/2025 Procedure Pass [address] [address] 03/24/2025 Transcribe Orders Virtual Department [address] [place] [address] Simeon Jimenez PA Radiculopathy, lumbar region (Primary Dx) from Last 3 Months Family History Medical History Relation Comments Cancer [...] your housing situation today? I have sabine maria elena 05/16/2024 How many times have you move [...] EXAM 04/08/2019 OSTEOPOROSIS SCREENING INITIAL (ONE-TIME) 2022 BLOOD PRESSURE 11/08/2024 05/10/2024 HEMOGLOBIN A1C 11/12/2024 05/14/2024, 06/13/2022 INFLUENZA VACCINE (#1) 2025 06/27/2010 COVID-19 VACCINE (3 - season) 2025 09/13/2021, 08/23/2021 COLORECTAL CANCER SCREENING 04/14/2025 FIT TEST 04/14/2025 [...] Procedure Name Priority Date/Time Associated Diagnosis Comments MRI LUMBAR SPINE (NEURO) WITH AND WITHOUT CONTRAST Routine 03/25/2025 10:24 PM EDT Radiculopathy, lumbar region COMPREHENSIVE METABOLIC PANEL Routine 05/19/2024 9:04 AM EDT HEMOGLOBIN A1C Routine 05/14/2024 5:49 AM EDT HEPATITIS C ANTIBODY, QUALITATIVE Routine 05/13/2024 5:46 AM EDT HC BLOOD OCCULT FECAL HGB DETER IA QUAL FECES 1-3 Routine 04/14/2024 6:09 AM EDT from Last 3 Months or Most Recently Relevant to Health Maintenance Results * MRI LUMBAR SPINE (NEURO) WITH [...] PORTILLO IMG MR XSPECIALTY Final R esult * (ABNORMAL) Comprehensive metabolic panel (05/19/2024 9:04 AM EDT) SODIUM 137 133 - 146 mmol/L [facility] POTASSIUM 3.5 3.3 - 5.1 mmol/L [facility] CHLORIDE 101 96 - 108 mmol/L [facility] CO2 27 21 - 35 mmol/L [facility] BUN 22(H) 6 - 19 mg/dL [facility] CREATININE 0.70 0.5 - 1.5 mg/dL [facility] GLUCOSE 165(H) 70 - 99 mg/dL [facility] ALBUMIN 3.2(L) 3.9 - 4.8 g/dL [facility] TOTAL PROTEIN 6.3(L) 6.5 - 8.0 g/dL [facility] CALCIUM 8.7 8.4 - 10.3 mg/dL [facility] ALKALINE PHOSPHATASE 147(H) 39 - 117 U/L [facility] TOTAL BILIRUBIN 0.3 0.0 - 1.2 mg/dL [facility] AST 22 0 - 37 U/L [facility] ALT 25 0 - 40 U/L [facility] GLOBULIN 3.1 1 - 4.8 g/dL [facility] EGFR 95 >59 mL/min/1.7 3m2 [facility] Comment:Estimated glomerular filtration rate calculated using the CKD-EPI refit equation. ANION GAP 13 10 - 20 mmol/L [facility] Blood 05/19/2024 9:04 AM EDT 05/19/2024 9:19 AM EDT Anastasiia Lizarraga DO, MPH LAB BLOOD ORDER CHAS Final Result Performing Organization Address [facility]/ZIP Co de Phone Number [address] [address] * (ABNORMAL) Hemoglobin A1c (05/14/2024 5:49 AM EDT) HEMOGLOBIN A1C 7.0(H) 4.3 - 5.8 % [facility] 05/14/2024 5:49 AM EDT 05/14/2024 6:09 AM EDT us Makenzie Bedolla MD LAB BLOOD ORDERABLES Final Resu lt Performing Organization Address [facility] Co de Phone Number [address] [address] * Hepatitis C antibody, qualitative (05/13/2024 5:46 AM EDT) HCV NON-REACTIV E NON-REACTI VE [facility] Blood 05/13/2024 5:46 AM EDT 05/13/2024 6:31 AM EDT us Cj Pina DO LAB BLOOD ORDERABLES Final Res ult Performing Organization Address [facility]/ZIP Co de Phone Number [address] [address] * Fecal immunochemical test x1 (FIT) (04/14/2024 6:09 AM EDT) Immuno Fecal Occult Negative Negative [facility] Stool (Stool) 04/14/2024 6:0 9 AM EDT 04/14/2024 6:20 AM EDT us Solitario Dai PA-C BODY FLUIDS AND STOOLS ORDERABLES Final Result Performing Organization Address [facility]/ZIP Co de Phone Number [address] [address] from Last 3 Months or Most Recently Relevant to Health Maintenance Insurance MEDICARE PART A & B HEALTH MEDICARE PART A & [place] MED[place]ARE PART A & B [facility] MEDIC[facility] PART A & [place] & B [facility] MEDICARE PART A & B [facility] Advance Directives For more information, please contact: [phone] (9AM - 5PM [facility], Saturday-Saturday) Documents on File Type Date Recorded Patient Integration Specialist Expl anation Healthcare Proxy 05/15/2024 4:41 PM * Full [...] 2:27 AM 04/08/2019 1:38 PM Care Teams Cutter Banana Room Relationship Specialty Start Date End Date Daniel Khalil MD [address] [place] [address] [email or web address] PCP - General Family Medicine 04/12/24 Additional Source Comments The information contained in this document represents components of the legal health record. It is not the complete legal health record.[facility]
--- OUTSIDE RECORDS SUMMARY | 2025-04-14 15:53 | XMS_ITS | Encounter Summary ---
Author Organization [facility] Address [address] [facility] [address] [place] [address] Phone Care Team Providers Care Fighting Vehicle Infantryman Name Role Phone Daniel Khalil MD Primary Care Prov ider Daniel Khalil MD Unavailable + Daniel Khalil MD Primary Care Prov ider Encounter Details Date Type Department Care Team (Late st Contact Info) Description 09/30/2017 Ancillary Orders Virtual Department [address] [place] [address] Daniel Khalil MD [address] [place], [place] [id number] [email or web address] Nonintractable headache, unspecified chronicity pattern, unspecified headache type Social History Tobacco Use Types Packs/Day Years [...] documented as of this encounter Results * CT HEAD WITHOUT CONTRAST (10/29/2017 4:30 PM EDT) Anatomical Region Laterality Modality Head Computed Tomogra phy 10/29/2017 4:35 PM EDT Impressions 10/29/2017 4:38 PM EDT No injury or other acute intracranial pathology is apparent. . . . . . . . . . . . . . . . . . . . . . . . . . . . . . . . . TOTAL CTDIvol: 58.4 mGy POS - [id number] Narrative 10/29/2017 4:38 PM EDT Exposure factors adjusted according to patient size. Multiplanar reconstructions. Nonenhanced exam. No comparison . . . . . . . . . . . . . . . . . . . . . . . . . . . . . . . . FINDINGS: No intracranial hemorrhage. No contusion, infarct, mass or mass-effect. Ventricular system is normal in size and configuration as are the basilar cisterns. No signs of elevated intracranial pressure. No fracture is identified. The middle ears, mastoid air cells and visualized upper paranasal sinuses are clear. Procedure Note Luis Montana MD - 10/29/2017 Exposure factors adjusted according to patient size. Multiplanarreconstructions. Nonenhanced exam. No comparison . . . . . . . . . . . . . . . . . . .. . . . . . . . . . . . . FINDINGS: No intracranial hemorrhage. No contusion, infarct, mass or mass-effect. Ventricular system is normal in size and configuration as are the basilarcisterns. No signs of elevated intracranial pressure. No fracture is identified. The middle ears, mastoid air cells andvisualized upper paranasal sinuses are clear. IMPRESSION: No injury or other acute intracranial pathology is apparent. . . . . . . . . . . . . . . . . . . .. . . . . . . . . . . . . TOTAL CTDIvol: 58.4 mGy POS - [id number] Daniel Harper MD IM CT HEAD/NECK F inal Result documented in this encounter Visit Diagnoses Diagnosis Nonintractable headache, unspecified chronicity pattern, unspecified headache type Nonintractable headache, unspecified chronicity pattern, unspecified headache type documented in this encounter Additional Health Concerns Infection Onset Date Last Indicated Resolved Time CoV-Risk 07/21/2021 07/21/2021 07/31/2021 1:23 AM EST CoV-Risk Comment:Per note documentation 04/12/2024 04/12/2024 6:51 AM EDT CoV-Risk Comment:Per note documentation 05/12/2024 05/12/2024 7:55 AM EDT documented as of this encounter Care Teams Fighting Vehicle Infantryman Relationship Specialty Start Date End Date Daniel Khalil MD [email or web address] PCP - General 05/21/17 04/11/24 Daniel Khalil MD [address] [place] [address] [email or web address] PCP - General Family Medicine 04/12/24 Daniel Khalil MD [address] [place] [address] [email or web address] Insurance Assigned Provider 11/02/17 12/22/22 documented as of this encounter Additional Source Comments The information contained in this document represents components of the legal health record. It is not the complete legal health record.[facility]
--- OUTSIDE RECORDS SUMMARY | 2025-04-14 15:53 | XMS_ITS | Encounter Summary ---
Author Organization [facility] Address [address] [place] [address] Care Team Providers Care Manager Party Name Role Phone Unavailable Primary Care Provider Unavailabl e Encounter Details Date Type Department Care Team (Late st Contact Info) Description 2020 [address] Requisition [place] [address] [place] [address] Harpreet Zuniga MD [address] [place], [place] [phone] Encounter for laboratory testing for COVID-19 virus [...] Date/Time Associated Diagnosis Comments COVID-19 (SARS-COV-2) - [facility] Routine 2020 3:17 PM EST Encounter for laboratory testing for COVID-19 virus [ICD-10-CM] documented in this encounter Results * COVID-19 (SARS-COV-2) ([facility]) (2020 3:17 PM EST) COVID-19 RT-PCR NOT-DETEC MARYJANE Not-Detec maryjane 09/07/2020 3:25 PM EST [facility] - [place] Comment:Interpretation: The viral RNA was not detected, making the COVID-19 diagnosis less likely. Clinical correlation is highly recommended.Final report signed by Jose Davis, Ph.D., Laboratory DirectorTests performed at [employer] [facility] Nasopharyngeal swab / Unknown 2020 3:17 PM EST 2020 3:17 PM EST Narrative SRUTHI HERR - 09/07/2020 3:25 PM EST Performed by [employer] [place] [address] [place] [address], CLIA# [id number] and [place] License# [id number] us Harpreet Zuniga MD MICROBIOLOGY - GENERAL ORDER CHAS Final Result SRUTHI SERENA Kelly HERR documented in this encounter Visit Diagnoses Diagnosis Encounter for laboratory testing for COVID-19 virus documented in this encounter
--- OUTSIDE RECORDS SUMMARY | 2025-04-14 15:54 | XMS_ITS | Encounter Summary ---
Author Organization [facility] Address [address] [facility] [address] [place] [address] Phone Care Team Providers Care Sorting And Folding Supervisor Name Role Phone Daniel Khalil MD Primary Care Prov ider Daniel Khalil MD Unavailable + Daniel Khalil MD Primary Care Prov ider Encounter Details Date Type Department Care Team (Late st Contact Info) Description 04/08/2019 Procedure Pass OR Admitting Dept - Virtual Department [address] [place] [address] Social History Tobacco Use Types Packs/Day Years [...] documented as of this encounter Care Teams Sorting And Folding Supervisor Relationship Specialty Start Date End Date Daniel Khalil MD [email or web address] PCP - General 05/21/17 04/11/24 Daniel Khalil MD [address] [place] [address] [email or web address] PCP - General Family Medicine 04/12/24 Daniel Khalil MD [address] [place] [address] [email or web address] Insurance Assigned Provider 11/02/17 12/22/22 documented as of this encounter Additional Source Comments The information contained in this document represents components of the legal health record. It is not the complete legal health record.[facility]
== END 2025-04-14 13:39 | disposition home or self-care (01) ==
LOC: HO.HOS 12:53
PROVIDERS: PCP Family Medicine; Visit Provider Orthopaedic Surgery
DX: M18.0 Bilateral primary osteoarthritis of first carpometacarpal joints (principal); M65.4 Radial styloid tenosynovitis [de Quervain]; E11.9 Type 2 diabetes mellitus without complications
CPT/HCPCS: 20600; 99213

== ENCOUNTER → 2025-04-14 12:53 | Outpatient (BNVA) | payer MEDICARE, MEDICAID, SELFPAY | PROVIDERS: PCP Family Medicine; Visit Provider Orthopaedic Surgery | DX: M18.11 Unilateral primary osteoarthritis of first carpometacarpal joint, right hand (principal); M18.12 Unilateral primary osteoarthritis of first carpometacarpal joint, left hand; M65.4 Radial styloid tenosynovitis [de Quervain]; E11.9 Type 2 diabetes mellitus without complications | CPT/HCPCS: 20600; 99212; J1100; J2003 ==

== ENCOUNTER 2025-05-18 13:12 | Outpatient (AMB) | payer MEDICARE, MEDICAID, SELFPAY ==
--- NOTE | 2025-05-18 13:24 | A.OFFVIS_ITS ---
Intake Visit Reasons: Inj-Right knee pain, last inj on 01/04/25 Intake Note: Michelle is a 69 year old female who presents with complaints of right knee pain. She describes her pain as sharp in nature. She has tried Tylenol and anti- inflammatory medicines which gave her minimal relief. She did have a cortisone injection given into her left knee earlier this year which gave her temporary relief. She wishes to hold off on surgery if at all possible. Power Station Operator Required: Yes Power Station Operator Services: Power Station Operator Offered & Declined Power Station Operator Name: Granddaughter. Allergies clindamycin Allergy (Unknown, Verified 05/18/25 13:27) Unknown Medication List - Last Reconciled 05/18/25 by Sher Salter MD acetaminophen-codeine 300-30 mg 1 tab PO Q8H PRN dulaglutide (Trulicity) 1.5 mg subcut QWEEK glipizide 5 mg PO BID lisinopril 10 mg PO DAILY magnesium oxide 250 mg PO DAILY metformin 1,000 mg PO BID omeprazole 20 mg PO DAILY simvastatin 20 mg PO DAILY tramadol 50 mg PO Q12H PRN 1 month triamterene-hydrochlorothiazid 37.5-25 mg 1 tab PO DAILY walker Folding front wheeled walker [facility] Medical History (Updated 09/30/24 @ 13:51 by Benjamín Quick) Diabetes GERD (gastroesophageal reflux disease) Elevated cholesterol HTN (hypertension) Arthritis Social History Current occupational status: unemployed Current occupation: rt hand Physical Exam Const Other: Well-nourished well-developed very friendly female awake alert and oriented x3 in no acute distress Extrem Other: Right knee examination shows a minimal effusion, palpable crepitus with range of motion, pain with range of motion, no instability Office Procedures AMB Joint Injection/Aspiration Joint Injection/Aspiration Primary Site: right knee Prep: site was prepped using aseptic technique Injected: 40 mg of, DepoMedrol and 1% plain lidocaine Procedure: The patient tolerated the procedure well Coding 62601 - Large joint Procedure code (CPT) selection complete Assessment & Plan Assessment & Plan (1) Arthritis of right knee: Code(s): M17.11 - Unilateral primary osteoarthritis, right knee Category: Medical Plan Ms. Paiz presents with right knee pain due to degenerative joint disease. The risks and benefits of a right knee cortisone injection were discussed at length with the patient. The patient wished to proceed. She tolerated the injection well. She will continue with her activity modifications. She will contact me prior to her follow-up appointment in 3 months should any questions or concerns arise. Feel free to call me at any time should questions regarding her orthopedic management arise. I spent 20 minutes in reviewing the patient's records and imaging studies, seeing the patient and documenting in the medical record. Orders: Orders AMB Joint Injection/Aspiration Today M17.11 - Unilateral primary osteoarthr itis, right knee Coding Level of Care Code Est Pt Level 3 (27259) Complex EM visit Add On G2211 Diagnoses Arthritis of right knee M17.11 CPT Codes Coding - 26397 Large joint: 43042 - Large joint ([id number])
--- OUTSIDE RECORDS SUMMARY | 2025-05-18 16:03 | XMS_ITS | Encounter Summary ---
Author Organization [facility] Address [address] [facility] [address] [place] [address] Phone Care Team Providers Care Lay Out Technician Name Role Phone Daniel Khalil MD Primary Care Prov ider Daniel Khalil MD Unavailable + Daniel Khalil MD Primary Care Prov ider Encounter Details Date Type Department Care Team (Late st Contact Info) Description 04/08/2019 Procedure Pass OR Admitting Dept - Virtual Department [address] [place] [address] Social History Tobacco Use Types Packs/Day Years [...] documented as of this encounter Care Teams Lay Out Technician Relationship Specialty Start Date End Date Daniel Khalil MD [email or web address] PCP - General 05/21/17 04/11/24 Daniel Khalil MD [address] [place] [address] [email or web address] PCP - General Family Medicine 04/12/24 Daniel Khalil MD [address] [place] [address] [email or web address] Insurance Assigned Provider 11/02/17 12/22/22 documented as of this encounter Additional Source Comments The information contained in this document represents components of the legal health record. It is not the complete legal health record.[facility]
--- OUTSIDE RECORDS SUMMARY | 2025-05-18 16:03 | XMS_ITS | Encounter Summary ---
Author Organization [facility] Address [address] [facility] [address] [place] [address] Phone Care Team Providers Care Test Engineering Manager Name Role Phone Daniel Khalil MD Primary Care Prov ider Daniel Khalil MD Unavailable + Daniel Khalil MD Primary Care Prov ider Encounter Details Date Type Department Care Team (Late st Contact Info) Description 07/21/2021 Procedure Pass [facility], Ct Scan - [address] [address] Social History Tobacco Use Types Packs/Day Years [...] 5:36 PM EST Brandie Boyd RN * [place] Suicide Severity Rating Scale (Screener/Recent Self-Report) Question [...] documented as of this encounter Care Teams Test Engineering Manager Relationship Specialty Start Date End Date Daniel Khalil MD [email or web address] PCP - General 05/21/17 04/11/24 Daniel Khalil MD [address] [place] [address] [email or web address] PCP - General Family Medicine 04/12/24 Daniel Khalil MD [address] [place] [address] [email or web address] Insurance Assigned Provider 11/02/17 12/22/22 documented as of this encounter Additional Source Comments The information contained in this document represents components of the legal health record. It is not the complete legal health record.[facility]
--- OUTSIDE RECORDS SUMMARY | 2025-05-18 16:03 | XMS_ITS | Encounter Summary ---
Author Organization [facility] Address [address] [facility] [address] [place] [address] Phone Care Team Providers Care Student Worker Name Role Phone Daniel Khalil MD Primary Care Prov ider Daniel Khalil MD Unavailable + Daniel Khalil MD Primary Care Prov ider Encounter Details Date Type Department Care Team (Late st Contact Info) Description 09/30/2017 Procedure Pass [facility], Ct Scan - [address] [address] Social History Tobacco Use Types Packs/Day Years [...] documented as of this encounter Care Teams Student Worker Relationship Specialty Start Date End Date Daniel Khalil MD [email or web address] PCP - General 05/21/17 04/11/24 Daniel Khalil MD [address] [place] [address] [email or web address] PCP - General Family Medicine 04/12/24 Daniel Khalil MD [address] [place] [address] [email or web address] Insurance Assigned Provider 11/02/17 12/22/22 documented as of this encounter Additional Source Comments The information contained in this document represents components of the legal health record. It is not the complete legal health record.[facility]
--- OUTSIDE RECORDS SUMMARY | 2025-05-18 16:03 | XMS_ITS | Clinical Summary ---
Author Organization [facility] Address [address] [facility] [address] [place] [address] Phone Care Team Providers Care Hand Mexican Food Maker Name Role Phone Daniel Khalil MD Primary [...] ago. She saw a physician (not a senior oracle developer) in [place] who might have started the methotrexate. She [...] at home and also tested positive for yxlju-wk-kyga strep testing at urgent care, suspect this [...] details of that, does not have a beater head. -PT -Considering echocardiogram if symptoms persist or [...] - 03/25/2025 11:59 PM EDT Hospital Encounter [address] [address] Simeon Jimenez PA Discharge Disposition: Home or Self Care 03/24/2025 Procedure Pass [address] [address] 03/24/2025 Transcribe Orders Virtual Department [address] [place] [address] Simeon Jimenez PA Radiculopathy, lumbar region (Primary [...] EDT) SODIUM 137 133 - 146 mmol/L [facility] POTASSIUM 3.5 3.3 - 5.1 mmol/L [facility] CHLORIDE 101 96 - 108 mmol/L [facility] CO2 27 21 - 35 mmol/L [facility] BUN 22(H) 6 - 19 mg/dL [facility] CREATININE 0.70 0.5 - 1.5 mg/dL [facility] GLUCOSE 165(H) 70 - 99 mg/dL [facility] ALBUMIN 3.2(L) 3.9 - 4.8 g/dL [facility] TOTAL PROTEIN 6.3(L) 6.5 - 8.0 g/dL [facility] CALCIUM 8.7 8.4 - 10.3 mg/dL [facility] ALKALINE PHOSPHATASE 147(H) 39 - 117 U/L [facility] TOTAL BILIRUBIN 0.3 0.0 - 1.2 mg/dL [facility] AST 22 0 - 37 U/L [facility] ALT 25 0 - 40 U/L [facility] GLOBULIN 3.1 1 - 4.8 g/dL [facility] EGFR 95 >59 mL/min/1.7 3m2 [facility] Comment:Estimated glomerular filtration rate calculated using the CKD-EPI refit equation. ANION GAP 13 10 - 20 mmol/L [facility] Blood 05/19/2024 9:04 AM EDT 05/19/2024 9:19 AM EDT Anastasiia Lizarraga DO, MPH LAB BLOOD ORDER CHAS Final Result Performing Organization Address [facility]/ZIP Co de Phone Number [address] [address] * (ABNORMAL) Hemoglobin A1c (05/14/2024 5:49 AM EDT) HEMOGLOBIN A1C 7.0(H) 4.3 - 5.8 % [facility] 05/14/2024 5:49 AM EDT 05/14/2024 6:09 AM EDT us Makenzie Bedolla MD LAB BLOOD ORDERABLES Final Resu lt Performing Organization Address [facility] Co de Phone Number [address] [address] * Hepatitis C antibody, qualitative (05/13/2024 5:46 AM EDT) HCV NON-REACTIV E NON-REACTI VE [facility] Blood 05/13/2024 5:46 AM EDT 05/13/2024 6:31 AM EDT us Cj Pina DO LAB BLOOD ORDERABLES Final Res ult Performing Organization Address [facility]/ZIP Co de Phone Number [address] [address] * Fecal immunochemical test x1 (FIT) (04/14/2024 6:09 AM EDT) Immuno Fecal Occult Negative Negative [facility] Stool (Stool) 04/14/2024 6:0 9 AM EDT 04/14/2024 6:20 AM EDT us Solitario Dai PA-C BODY FLUIDS AND STOOLS ORDERABLES Final Result Performing Organization Address [facility]/ZIP Co de Phone Number [address] [address] from Last 3 Months or Most Recently Relevant to Health Maintenance Insurance MEDICARE PART A & B HEALTH MEDICARE PART A & [place] & [facility] [place] & B [facility] MEDICARE PART A & B [facility] Advance Directives For more information, please contact: [phone] (9AM - 5PM [facility], Saturday-Saturday) Documents on File Type Date Recorded Patient Montessori Lead Teacher Expl anation Healthcare Proxy 05/15/2024 4:41 PM [...] 2:27 AM 04/08/2019 1:38 PM Care Teams Hand Mexican Food Maker Relationship Specialty Start Date End Date Daniel Khalil MD [address] [place] [address] [email or web address] PCP - General Family Medicine 04/12/24 Additional Source Comments The information contained in this document represents components of the legal health record. It is not the complete legal health record.[facility]
--- OUTSIDE RECORDS SUMMARY | 2025-05-18 16:03 | XMS_ITS | Encounter Summary ---
Author Organization [facility] Address [address] [place] [address] Phone Care Team Providers Care Actuarial Director Name Role Phone Daniel Khalil MD Primary Care Prov ider Daniel Khalil MD Unavailable + Daniel Khalil MD Primary Care Prov ider Encounter Details Date Type Department Care Team (Late st Contact Info) Description 09/30/2017 Ancillary Orders Virtual Department [address] [place] [address] Daniel Khalil MD [address] [place], [place] [phone] [email or web address] Nonintractable headache, unspecified chronicity pattern, unspecified headache [...] documented as of this encounter Care Teams Actuarial Director Relationship Specialty Start Date End Date Daniel Khalil MD [email or web address] PCP - General 05/21/17 04/11/24 Daniel Khalil MD [address] [place] [phone] [email or web address] PCP - General Family Medicine 04/12/24 Daniel Khalil MD [address] [place] [address] [email or web address] Insurance Assigned Provider 11/02/17 12/22/22 documented as of this encounter Additional Source Comments The information contained in this document represents components of the legal health record. It is not the complete legal health record.[facility]
--- OUTSIDE RECORDS SUMMARY | 2025-05-18 16:03 | XMS_ITS | Encounter Summary ---
Author Organization [facility] Address [address] [place] [phone] Phone Care Team Providers Care Director Writing Name Role Phone Daniel Khalil MD Primary Care Prov ider Reason for Referral * MRI/CAT Scan - Closed Specialty Diagnoses / Procedures Referred By Blayne mancini Referred To Contact Radiology Diagnoses Radiculopathy, lumbar region Procedures MRI Lumbar Spine Simeon Jimenez PA [address] [place] [phone] Phone: tel: fax: Referral ID Status Reason Start Date Expiration Date Visits Re quested Visits Authorized [id number] Closed 03/24/2025 03/24/2026 1 1 Encounter Details Date Type Department Care Team (Latest Contact Info) Description 03/24/2025 Transcribe Orders Virtual Department [address] [place] [address] Simeon Jimenez PA [address] [place] [phone] Radiculopathy, lumbar region (Primary Dx) Social [...] unspecified documented in this encounter Care Teams Director Writing Relationship Specialty Start Date End Date Daniel Khalil MD [address] [place] [phone] [email or web address] PCP - General Family Medicine 04/12/24 documented as of this encounter Additional Source Comments The information contained in this document represents components of the legal health record. It is not the complete legal health record.[facility]
--- OUTSIDE RECORDS SUMMARY | 2025-05-18 16:03 | XMS_ITS | Encounter Summary ---
Author Organization [facility] Address [address] [place] [address] Phone Care Team Providers Care Shop Tech Name Role Phone Daniel Khalil MD Primary Care Prov ider Encounter Details Date Type Department Care Team (Late st Contact Info) Description 03/24/2025 Procedure [facility] [address] [place] [address] Social History Tobacco Use Types Packs/Day Years [...] on filedocumented in this encounter Care Teams Shop Tech Relationship Specialty Start Date End Date Daniel Khalil MD [address] [place] [phone] [email or web address] PCP - General Family Medicine 04/12/24 documented as of this encounter Additional Source Comments The information contained in this document represents components of the legal health record. It is not the complete legal health record.[facility]
--- OUTSIDE RECORDS SUMMARY | 2025-05-18 16:03 | XMS_ITS | Clinical Summary ---
Author Organization [facility] Address [address] [place] [address] Care Team Providers Care Ritual Circumciser Name Role Phone Daniel Khalil MD Primary [...] age to complete this topic Care Teams Ritual Circumciser Relationship Specialty Start Date End Date Daniel Khalil MD [address] [place] [phone] PCP - General Family Medicine 01/26/21
== END 2025-05-18 13:41 | disposition home or self-care (01) ==
LOC: HO.HOS 13:12
PROVIDERS: PCP Family Medicine; Visit Provider Orthopaedic Surgery
DX: M17.11 Unilateral primary osteoarthritis, right knee (principal)
CPT/HCPCS: 20610; 99213

== ENCOUNTER → 2025-05-18 13:12 | Outpatient (BNVA) | payer MEDICARE, MEDICAID, SELFPAY | PROVIDERS: PCP Family Medicine; Visit Provider Orthopaedic Surgery | DX: M17.11 Unilateral primary osteoarthritis, right knee (principal) | CPT/HCPCS: 20610; 99212; J1010; J2003 ==